=== PATIENT | female | born 1965 | race Caucasian/White ===

== ENCOUNTER 2022-06-26 08:23 | Emergency (ER) | payer BC, SELFPAY ==
[2022-06-26 08:45] VITALS: BP 115/76; PULSE 82; RESP 16; TEMP 35.8; O2SAT 97; BMI 31.2
--- NOTE | 2022-06-26 11:35 | PC.NURSE ---
pt to room 5
--- NOTE | 2022-06-26 11:36 | ED_ITS ---
HPI - Back Pain/Injury General Chief Complaint: Back Injury/Pain Stated Complaint: Back pain,lower right side Time Seen by Provider: 06/26/22 11:27 History of Present Illness HPI Narrative: This 56-year-old female comes in with low back pain on the right side. She has chronic back pain and has had 4 surgeries in the past. She does not report any recent injury event or strenuous activity but does state that her pain is worsened over the past 3 days. She has been taking Flexeril and gabapentin. She states that she has Crohn's disease and is not able to take NSAIDs. She does not report any pain radiating down her right leg. Pain is worse when bearing weight. Related Data Home Medications Medication Instructions Recorded Confirmed albuterol sulfate 90 mcg/actuation inhalation 06/26/22 aerosol inhaler (ProAir HFA) cyclobenzaprine 10 mg tablet mg 06/26/22 tramadol 50 mg tablet mg 06/26/22 Previous Rx's Medication Instructions Recorded hydrocodone 5 mg-acetaminophen 325 1 tab PO Q4-6H PRN pain #15 tabs 06/26/22 mg tablet methylprednisolone 4 mg tablets in 4 mg PO DAILY #21 ea 06/26/22 a dose pack (Medrol (Percy)) tizanidine 4 mg capsule (Zanaflex) 4 mg PO TID PRN muscle spasticity 06/26/22 #20 caps Allergies Allergy/AdvReac Type Severity Reaction Status Date / Time cefzil Allergy Mild unknown Uncoded 06/26/22 08:50 Review of Systems Status of ROS: Reports: 10 or more systems reviewed and unremarkable except as noted in History and below Narrative: Constitutional: No fevers, no weight gain or loss. Eyes: No discharge. No vision changes. HENT: No congestion, no sore throat, no ear pain. Cardiovascular: No chest pain, no palpitations. Respiratory: No shortness of breath, no wheezes, no cough. Gastrointestinal: No abdominal pain, no vomiting, no diarrhea. Genitourinary: No dysuria, no hematuria. Musculoskeletal: Normal range of motion. Right-sided low back pain as described above. Skin: No rashes, no pruritis. Neurological: No dizziness, weakness, sensory change, speech change. Endo/Heme/Allergies: No bruising or bleeding. No polydipsia. Pysch: no suicidality, no anxiety, no insomnia. All other systems reviewed and are negative. Exam Narrative: Exam Narrative: Constitutional: Well-developed, well-nourished, no acute distress. HEENT: Normocephalic, atraumatic. Neck: Normal range of motion. Nontender. Supple. Heart: Intact distal pulses. Lungs: No chest discomfort. No wheezes, rhonchi, or rales. Abdomen: Nontender. Back: Normal range of motion. Pain is worsened when palpating on the right low back region. Straight leg raise is negative. Extremities: Normal range of motion. No injury. She wears a brace on her left knee. Skin: Intact. No rash. Warm. No erythema or pallor. Neurologic: No altered sensation. No weakness. Alert and oriented. Psychiatric: No suicidality. No anxiety or depression. No insomnia. Nursing notes and vitals signs are reviewed. Const: Vital Signs, click to edit/add: Vital Signs - 24 hr 06/26/22 08:45 Temperature 96.5 F L Pulse Rate [Right Pulse Oximeter] 82 Respiratory Rate 16 Blood Pressure [Le ft Upper Arm] 115/76 Pulse Oximetry 97 Oxygen Delivery Me thod Room Air Course Vital Signs Vital signs: Initial Vital Signs Temperature 96.5 F L 06/26/22 08:45 Temperature Source Temporal Artery Scan 06/26/22 08:45 Pulse Rate 82 06/26/22 08:45 Pulse Rhythm 06/26/22 08:45 Respiratory Rate 16 06/26/22 08:45 Blood Pressure 115/76 06/26/22 08:45 Blood Pressure Mean 89 06/26/22 08:45 Blood Pressure Position Sitting 06/26/22 08:45 Pulse Oximetry 97 06/26/22 08:45 Oxygen Delivery Method 06/26/22 08:45 Vital Signs Temperature 96.5 F L 06/26/22 08:45 Pulse Rate 82 06/26/22 08:45 Respiratory Rate 16 06/26/22 08:45 Blood Pressure 115/76 06/26/22 08:45 Pulse Oximetry 97 06/26/22 08:45 Oxygen Delivery Method 06/26/22 08:45 Temperature 96.5 F L 06/26/22 08:45 Pulse Rate 82 06/26/22 08:45 Respiratory Rate 16 06/26/22 08:45 Blood Pressure 115/76 06/26/22 08:45 Pulse Oximetry 97 06/26/22 08:45 Oxygen Delivery Method 06/26/22 08:45 MDM - Back Pain/Injury MDM Narrative Medical decision making narrative: This patient has a flare-up of her chronic back pain. This is not related to any recent strenuous activity or injury event. Imaging studies are not indicated at this time. She received an intramuscular injection of morphine 10 mg. Prescriptions are provided for Roy, Zanaflex, and Medrol Dosepak. She understands that we will not repeat a refill these medicines the emergency department. Discharge Plan Discharge Clinical Impression: Lumbago Patient Disposition: Home, Self-Care Condition: Unchanged Instructions: Acute Low Back Pain (ED) Additional Instructions: Take medication as prescribed. Follow up with MD or return if worsening. Prescriptions: New methylprednisolone [Medrol (Percy)] 4 mg tablets,dose pack 4 mg PO DAILY Qty: 21 0RF tizanidine [Zanaflex] 4 mg capsule 4 mg PO TID PRN (Reason: muscle spasticity) Qty: 20 0RF hydrocodone-acetaminophen 5-325 mg tablet 1 tab PO Q4-6H PRN (Reason: pain) Qty: 15 0RF No Action cyclobenzaprine 10 mg tablet Label Comments: TAKE 1 TABLET BY MOUTH THREE TIMES DAILY NEEDED FOR MUSCLE SPASM tramadol 50 mg tablet Label Comments: TAKE 1 TABLET BY MOUTH THREE TIMES DAILY NEEDED albuterol sulfate [ProAir HFA] 90 mcg/actuation HFA aerosol inhaler INHALATION Label Comments: INHALE 2 PUFFS BY MOUTH FOUR TIMES DAILY NEEDED Stand Alone [facility]
[2022-06-26] MEDS: diphenhydrAMINE 25 MG CAPSULE PO (12:04)
[2022-06-26] MEDS: MORPHINE 10 MG/ML inj IM (12:04)
== END 2022-06-26 12:13 | disposition home or self-care (01) ==
LOC: ED 11:47
PROVIDERS: Emergency Provider Emergency Medicine Emergency Medical Services; PCP Physician Assistant Medical
DX: M54.50 Low back pain, unspecified (principal)
CPT/HCPCS: 96372; 99284; A9270; J2270

== ENCOUNTER 2022-07-28 09:04 | Outpatient (CLI) | payer BC, SELFPAY ==
[2022-07-28 14:38] LABS: SARS PCR* Negative SARS-CoV-2 (Negative)
== END 2022-07-28 09:05 | disposition home or self-care (01) ==
LOC: FBOREF 09:04
PROVIDERS: PCP Physician Assistant Medical; Visit Provider Orthopaedic Surgery
DX: Z11.52 Encounter for screening for COVID-19 (principal)
CPT/HCPCS: 87635

== ENCOUNTER 2022-07-29 06:13 | Day surgery (SDC) | payer BC, SELFPAY ==
[2022-07-29] VITALS (9 sets, daily range): BP systolic 96–127; BP diastolic 71–79; PULSE 16–80; RESP 14–16; TEMP 36.1–36.6; O2SAT 94–99; BMI 33.7
[2022-07-29] MEDS: LACTATED RINGERS 1000 ML 1,000 ML 100 ML IV (06:45)
[2022-07-29] MEDS: SODIUM CHLORIDE 0.9 % (FLUSH) 10 ML SYRINGE IVF (06:45)
[2022-07-29] MEDS: CLINDAMYCIN 900 MG/50 ML-D5W IVPB (07:40)
[2022-07-29] MEDS: BUPIVACAINE 0.25% 30 ML INJECTION (08:12)
--- NOTE | 2022-07-29 08:16 | PM.ORPRC ---
Procedure Note Date of procedure: 07/29/22 Procedure: SURGEON: Martín Man MD SYSTEMS SUPPORT OFFICER: Gabrielle Gann PA-C PREOPERATIVE DIAGNOSIS: Left knee medial meniscus tear, loose body, medial and patellofemoral compartment osteoarthritis POSTOPERATIVE DIAGNOSIS: Left knee medial meniscus tear, loose body, medial and patellofemoral compartment osteoarthritis NAME OF OPERATION: Left knee arthroscopic partial medial meniscectomy, loose body removal, medial and patellofemoral compartment chondroplasty ANESTHESIA: Spinal ESTIMATED BLOOD LOSS: 0 mL COMPLICATIONS: None SPECIMENS: None DRAINS: None PREOPERATIVE ANTIBIOTICS: Ancef 2 gram INDICATIONS: The patient is a 56-year-old female with a history of left knee medial pain. MRI scan is consistent with a medial meniscus tear, loose body, medial and patellofemoral compartment osteoarthritis. Despite appropriate nonoperative management, including activity modification, antiinflammatories, [id number] pain medication, bracing, physical therapy, and injections they continue to have pain and disability. Operative intervention was offered. The risks, benefits and expected outcomes were discussed in detail. These included but were not limited to: Infection, bleeding, injury to blood vessel or nerve, venous thromboembolism. All questions were answered to their satisfaction. PROCEDURE: Spinal anesthesia was administered. The patient was placed supine on the operating room table. The left lower extremity was prepped and draped in the usual sterile fashion. The limb was exsanguinated with the Cheko bandage. The pneumatic tourniquet was inflated to 300 mmHg. A standard anterolateral portal was established. The arthroscope was introduced. The working portal was established anteromedially. Diagnostic arthroscopy was performed with findings as follows: The suprapatellar pouch is normal. Articular surface on the patella shows grade 2/3 change since. Articular surface on the trochlea shows grade 2/3 change. The medial gutter is normal. The medial compartment shows diffuse grade 3 change on the medial femoral condyle, grade 2 change on the medial tibial plateau. The medial meniscus has a complex degenerative tear of the posterior horn, into the midbody. This primarily consists of a small radial tear with some undersurface horizontal cleavage tearing. The root is intact. The notch shows the ACL to be intact. There is a loose body, just lateral to the ACL. The lateral compartment shows normal articular cartilage on the lateral femoral condyle and lateral tibial plateau. The lateral meniscus is normal. The lateral gutter is normal. The posterior horn and midbody of the medial meniscus was debrided to a stable base using a combination of baskets and shaver through both portals. Unstable chondral flaps on the medial femoral condyle and femoral trochlea and patella were debrided with the shaver through both portals, taken to a stable base. The loose body was removed with a pituitary rongeur. Arthroscopic instruments were removed, the portal sites were Steri-Stripped closed, the knee was infiltrated with 30 mL of 0.25% Marcaine without epinephrine. A dry dressing was applied, the tourniquet was released. Sponge and needle counts were correct x 2. The patient tolerated the procedure well. There were no apparent complications. They were carefully transferred to the hospital bed and taken to the postanesthesia care unit in satisfactory condition. PLAN: The patient will be discharged to home. They may weightbear as tolerates. Range of motion will be unrestricted. They will follow up in the office next week for a wound check.
--- NOTE | 2022-07-29 08:25 | W.ANESCHARGE ---
Anesthesia Charges Start Date/Time Anesthesia Start Date: 07/29/22 Anesthesia Start Time: 07:29 Stop Date/Time Anesthesia Stop Date: 07/29/22 Anesthesia Stop Time: 08:23 Summary Emergency: No
--- NOTE | 2022-07-29 10:43 | W.ANESCHARGE ---
Anesthesia Charges Start Date/Time Anesthesia Start Date: 07/29/22 Anesthesia Start Time: 07:29 Stop Date/Time Anesthesia Stop Date: 07/29/22 Anesthesia Stop Time: 08:23 Summary Emergency: No
== END 2022-07-29 09:50 | disposition home or self-care (01) ==
PROVIDERS: PCP Physician Assistant Medical; Visit Provider Orthopaedic Surgery
PROC: (CPT 29870; principal; 2022-07-29 07:30)
DX: M23.222 Derangement of posterior horn of medial meniscus due to old tear or injury, left knee (principal); M23.42 Loose body in knee, left knee; M17.12 Unilateral primary osteoarthritis, left knee
CPT/HCPCS: 29881; 01400; J1100; J1200; J2250; J2400; J2405; J2704; J3010; J3490; J7120; S0077

== ENCOUNTER 2022-12-29 09:25 | Emergency (ER) | payer BC, SELFPAY ==
--- NOTE | 2022-12-29 | CRLHL7_ITS ---
For Patients: As a result of the Century Cures Act, medical imaging exams and procedure reports are released immediately into your electronic medical record. You may view this report before your referring provider. If you have questions, please contact your health care provider. Indication: Injury Technique: A total of three views each of the left hand and of the left breast were acquired. Comparison: None Findings: Bones: Alignment is normal. No fractures or bone lesions. Joint spaces: Moderate to severe osteoarthritis at the 1st carpometacarpal joint with remodeling deformity of the trapezium. Soft tissues: Unremarkable. Impression: 1. No acute fracture, dislocation or destructive process involving the left hand or the left wrist. 2. Moderate to severe osteoarthritis at the 1st carpometacarpal joint with remodeling deformity of the trapezium. Dictated by Dylan Bullock MD @ 12/29/2022 11:19:10 AM (Electronically Signed)
[2022-12-29 09:29] VITALS: BP 138/87; PULSE 62; RESP 18; TEMP 36.3; O2SAT 96
--- NOTE | 2022-12-29 10:19 | ED.UPPEXIN ---
HPI - Extremity Injury (Upper) General Chief Complaint: Extremity Pain/Injury, Upper Stated Complaint: Fell this morning, left arm injury Time Seen by Provider: 12/29/22 10:14 History of Present Illness HPI narrative: This 57-year-old female comes in because of an injury to her left upper extremity. She states that she slipped and fell onto her left side prior to arrival. She did not hit her head or have loss of consciousness she complains of pain in the left hand and wrist primarily. There is some discomfort also in her left elbow but she has normal range of motion and no sign of injury in the elbow region. She does have some swelling in her left hand and decreased range of motion due to pain. There is no obvious sign of deformity. Related Data Home Medications Medication Instructions Recorded Confirmed albuterol sulfate 90 mcg/actuation 2 inh inhalation PRN 06/26/22 12/29/22 aerosol inhaler (ProAir HFA) cyclobenzaprine 10 mg tablet mg 06/26/22 07/16/22 balsalazide 750 mg capsule 750 mg PO TID 07/28/22 12/29/22 gabapentin 600 mg tablet 600 mg PO QHS 07/28/22 12/29/22 acetaminophen 500 mg tablet 500 mg PO Q6H PRN 08/06/22 12/29/22 (Acetaminophen Extra Strength) epinephrine 0.3 mg/0.3 mL 12/29/22 injection, auto-injector Allergies Allergy/AdvReac Type Severity Reaction Status Date / Time cephalexin Allergy Hives Verified 12/29/22 09:33 latex Allergy Rash Verified 12/29/22 09:33 cefzil Allergy Mild unknown Uncoded 08/06/22 13:08 Shellfish Allergy Nausea Uncoded 08/06/22 13:08 Review of Systems Status of ROS: Reports: 10 or more systems reviewed and unremarkable except as noted in History and below Narrative: Constitutional: No fevers, no weight gain or loss. Eyes: No discharge. No vision changes. HENT: No congestion, no sore throat, no ear pain. Cardiovascular: No chest pain, no palpitations. Respiratory: No shortness of breath, no wheezes, no cough. Gastrointestinal: No abdominal pain, no vomiting, no diarrhea. Genitourinary: No dysuria, no hematuria. Musculoskeletal: Injury to left upper extremity as described above. Skin: No rashes, no pruritis. Neurological: No dizziness, weakness, sensory change, speech change. Endo/Heme/Allergies: No bruising or bleeding. No polydipsia. Pysch: no suicidality, no anxiety, no insomnia. All other systems reviewed and are negative. [facility] Medical History (Updated 12/29/22 @ 11:32 by Aaron Lara MD) Anxiety Chronic pain syndrome Crohn's disease Plantar fascia rupture Surgical History (Updated 08/06/22 @ 13:34 by Sabiha Piedra PA-C) H/O: hysterectomy Previous back surgery S/P arthroscopic partial medial meniscectomy S/P foot surgery, left Social History , [employer]) Smoking Status: Never smoker Do you use any of these nicotine containing products: None How often do you have a drink containing alcohol: monthly or less How many standard drinks containing alcohol do you have on a typical day: 1 or 2 How often do you have six or more drinks on one occasion: Never AUDIT-C Alcohol total score: 1 Non-prescribed substance use: denies use Caffeine: Yes (2 cups coffee in am) Are you using contraception or practicing any form of control: No service: No Exam Narrative: Exam Narrative: Constitutional: Well-developed, well-nourished, no acute distress. HEENT: Normocephalic, atraumatic. Neck: Normal range of motion. Nontender. Supple. Heart: Intact distal pulses. Lungs: No chest discomfort. No wheezes, rhonchi, or rales. Abdomen: Nontender. Back: Normal range of motion. Extremities: Diffuse tenderness in the left wrist and hand. Mild swelling. No skin injury. Decreased range of motion due to pain. Skin: Intact. No rash. Warm. No erythema or pallor. Neurologic: No altered sensation. No weakness. Alert and oriented. Psychiatric: No suicidality. No anxiety or depression. No insomnia. Nursing notes and vitals signs are reviewed. Const: Vital Signs, click to edit/add: Vital Signs - 24 hr 12/29/22 09:29 Temperature 97.4 F L Pulse Rate [Right Pulse Oximeter] 62 Respiratory Rate 18 Blood Pressure [Ri ght Upper Arm] 138/87 Pulse Oximetry 96 Oxygen Delivery Me thod Room Air Course Vital Signs Vital signs: Initial Vital Signs Temperature 97.4 F L 12/29/22 09:29 Temperature Source Temporal Artery Scan 12/29/22 09:29 Pulse Rate 62 12/29/22 09:29 Pulse Rhythm 12/29/22 09:29 Pulse Strength 3+ Normal 12/29/22 09:29 Respiratory Rate 18 12/29/22 09:29 Blood Pressure 138/87 12/29/22 09:29 Blood Pressure Mean 104 12/29/22 09:29 Blood Pressure Position Sitting 12/29/22 09:29 Pulse Oximetry 96 12/29/22 09:29 Oxygen Delivery Method 12/29/22 09:29 Vital Signs Temperature 97.4 F L 12/29/22 09:29 Pulse Rate 62 12/29/22 09:29 Respiratory Rate 18 12/29/22 09:29 Blood Pressure 138/87 12/29/22 09:29 Pulse Oximetry 96 12/29/22 09:29 Oxygen Delivery Method 12/29/22 09:29 Temperature 97.4 F L 12/29/22 09:29 Pulse Rate 62 12/29/22 09:29 Respiratory Rate 18 12/29/22 09:29 Blood Pressure 138/87 12/29/22 09:29 Pulse Oximetry 96 12/29/22 09:29 Oxygen Delivery Method 12/29/22 09:29 MDM - Extremity Injury (Upper) MDM Narrative Medical decision making narrative: This patient comes in for evaluation of injury to her left upper extremity because of a fall that occurred just prior to arrival. X-ray imaging of the hand and wrist show no acute findings of fracture or dislocation. There are some degenerative changes observed on x-ray imaging. The patient received a splint and is encouraged use [id number] medicines as needed and directed along with increased activity as tolerated. Imaging Data XR L Hand/Wrist: Radiologist's impression: 1. No acute fracture, dislocation or destructive process involving the left hand or the left wrist. 2. Moderate to severe osteoarthritis at the 1st carpometacarpal joint with remodeling deformity of the trapezium. Discharge Plan Discharge Clinical Impression: Sprain and strain of wrist Patient Disposition: Home, Self-Care Condition: Stable Additional Instructions: Wear splint as needed. Increase activity as tolerated. Use [id number] medicines as needed and directed. Follow up with MD or return if worsening. Prescriptions: No Action acetaminophen [Acetaminophen Extra Strength] 500 mg tablet 500 mg PO Q6H PRN cyclobenzaprine 10 mg tablet Hold Instructions: per patient Label Comments: TAKE 1 TABLET BY MOUTH THREE TIMES DAILY NEEDED FOR MUSCLE SPASM albuterol sulfate [ProAir HFA] 90 mcg/actuation HFA aerosol inhaler 2 inh INHALATION PRN Label Comments: INHALE 2 PUFFS BY MOUTH FOUR TIMES DAILY NEEDED balsalazide 750 mg capsule 750 mg PO TID Hold Instructions: pt gabapentin 600 mg tablet 600 mg PO QHS epinephrine 0.3 mg/0.3 mL auto-injector Label Comments: USE DIRECTED FOR BEE STING Follow Up/Referrals: Rafia Hickman, PARosita [Primary Care Provider] - Stand Alone [facility]
== END 2022-12-29 11:37 | disposition home or self-care (01) ==
PROVIDERS: Emergency Provider Emergency Medicine Emergency Medical Services; PCP Physician Assistant Medical
DX: S63.502A Unspecified sprain of left wrist, initial encounter (principal); W01.0XXA Fall on same level from slipping, tripping and stumbling without subsequent striking against object, initial encounter
CPT/HCPCS: 73110; 73130; 99283; 99284

== ENCOUNTER 2023-08-07 09:02 | Outpatient (CLI) | payer BC, SELFPAY ==
--- OUTSIDE RECORDS SUMMARY | 2023-08-07 09:04 | XMS_ITS | Continuity of Care Document ---
Author Name Unknown Organization [facility] Address [address] [place] [address] Phone Care Team Providers Care Grinding Wheel Inspector Name Role Phone Gurvinder NEELY, Anna Unavailable Unavailable Allergies, Adverse Reactions, Alerts Substance Reaction Status Criticality Cephalosporins rash Active No Informatio n Medications Medication Instructions Dosage Effective Dates (start - stop) Status Comments VICODIN HP (unknown strength) Not Available - Active GABAPENTIN (unknown strength) Not Available - Active BENADRYL (unknown strength) Not Available - Active CYCLOBENZAPRINE HCL (unknown strength) Not Available - Active TRAMADOL HCL ER (unknown strength) Not Available - Active Procedures Procedure Date Postop Followup Visit X-Ray Exam Of Neck Spine2-3 Views Postop Followup Visit X-Ray Exam Lower Spine 2-3 Views 2019 TLIF - Includes PSF at the same level - PA Posterior Instrumentation, Non-segmental - PA PEEK/ Cage/ Implant, For Interbody Fusio n - PA TLIF - Includes PSF at the same level No Posterior Instrumentation, Non-segmental PEEK/ Cage/ Implant, For Interbody Fusio n Office/Outpatient Visit,Est, Mod 2019 X-Ray Exam Of Lower Spine, Bending Postop Followup Visit Postop Followup Visit Lami/Discectomy, Lumbar HNP - PA 2019 Lami/Discectomy, Lumbar HNP OFFICE/OUTPATIENT VISIT NEW Phone Postop followup visit Remove spine fixation device, post PA Assist Remove spine fixation device, post Office/outpatient visit,est, low 2008 X-ray exam lower spine 2-3 views 2008 Office/outpatient visit,est, mod 2007 X-ray exam lower spine 2-3 views 2007 Postop followup visit X-ray exam lower spine 2-3 views 2006 Postop followup visit X-ray exam lower spine 2-3 views 2006 [place] Lumbar spine fusion w/bone graft Lumbar spine fusion, posterolateral Insert spine fixation, posterior 2006 Apply spinal prosthetic device 07 Allograft, spine surg, morselized Low back disk surgery/decompress 2006 Assist ILumbar spine fusion, posterolate ral Assist Insert spine fixation, posterior Assist Apply spinal prosthetic device Ju Assist Low back disk surgery/decompress Office consultation, moderate 7 X-ray exam lwr spine, min 4 views Advance Directives Directive Yes / No Effective Date File Name No Information Encounters Encounter Description Practice Location Reason(s) For Visit Diagnoses Date Provider Providers Copied on Encounter [facility], [address], [place], [place], [id number], [place] tel:[phone] [facility] No Information 1 Gurvinder Pugh [facility], [address], [place], [place], [id number] , [place]. tel:[phone] [facility], [address], [place], [place], [id number], [place] tel:[phone] [facility] Other intervertebral disc displacement, lumbar regionSpinal stenosis, lumbar region with neurogenic claudication Fe0 1 Bruce Bowens. [address], [place], [place], [id number] , [place]. tel: [phone] Referring Provider: Anna Hollins [facility] [address], [place], [address] . tel:[phone] [facility], [address], [place], [place], [address], [place] tel:[phone] [facility] Spinal stenosis, lumbar region with neurogenic claudicationOt her intervertebral disc displacement, lumbar region 0 Mehbod [facility], [address], [place], [place], [id number] , [place]. tel: [phone] Referring Provider: Anna Hollins, [facility] [place] [address], [place], [address] . tel:[phone] [facility], [address], [place], [place], [id number], [place] tel:[phone] [facility] No Information 0 Eckroth Kwan. [address] [place] [address] [address], [place], [place], [id number] , [place]. tel: [phone] Referring Provider: Anna Hollins [facility] [place] [address], [place], [address] . tel:[phone] [facility], [address], [place], [place], [id number], [place] tel:[phone] [facility] No Information 0 Mehbradha Pugh [facility], [address], [place], [place], [id number] , [place]. tel: [phone] Referring Provider: Anna Hollins [facility] [place] [address], [place], [address] . tel:[phone] Office/Outpa tient Visit,Est, Mod [facility], [address], [place], [place], [id number], [place] tel:[phone] [facility] Spinal stenosis, lumbar region with neurogenic claudicationOt her intervertebral disc displacement, lumbar region 2-202 0 Mehbod [facility], [address] [place] [address] [address], [place], [place], [id number] , . tel:[phone] Referring Provider: Claude Martinez, [address], [address]. tel:[phone] [facility], [address] [place] [address], [id number], [place] tel:[phone] [facility] [place] Radiculopathy, lumbar region 0-202 0 Eckroth Kwan. [address] [place] [address], [id number] , [place]. tel:[phone] Referring Provider: Anna Hollins, [facility] [place] [address], [place], [address] . tel:[phone] [facility], [address], [place], [place], [id number], [place] tel:[phone] [facility] - [facility] Arthrodesis status 0 Mehbod [facility] [place], [address] [place] [address], [place], [place], [id number] , [place]. tel:[phone] Referring Provider: Ravi German, [address] [place], [address]. tel:[phone] [facility], [address], [place], [place], [id number], [place] [phone] [facility] No Information 0 6-202 0 Eckroth Kwan. [address] [place] [address], [id number] , . tel:[phone] Referring Provider: Anna Hollins, [facility] [place] [address], [place], [address] . tel:[phone] [facility], [address] [place] [address], [id number], [place] tel:[phone] [facility] No Information May-0 4-202 0 Mehbod Amir. [facility], [address], [place], [place], [id number] , [place]. tel: [phone] Referring Provider: Anna Hollins, [facility] [address], [place], [address] . tel:[phone] OFFICE/OUTPA TIENT VISIT NEW Phone [facility], [address], [place], [place], [id number], [place] tel:[phone] [facility] No Information Feb-2 9-202 0 Mehbod Amir. [facility] [place], [address], [place], [place], [address] , [place]. tel: [phone] Referring Provider: Anna Hollins, [facility] [place] [address], [place], [address] . tel:[phone] Z [facility], [address], [place], [facility], [place] tel:[phone] [facility] No Information May-2 0-200 9 Mehbod Amir. [facility], [address], [place], [place], [id number] , [place]. tel:[phone] Z [facility], [address], [place], [facility], [place] tel:[phone] [facility] No Information Satish-0 9-200 9 Mehbod Amir. [facility], [address], [place], [place], [address] , [place]. tel:[phone] Office/outpa tient visit,est, low Z [facility], [address], [place], [address], [place] tel:[phone] [facility] No Information Apr-3 0-200 9 Mehbod Amir. [facility] [place], [address], [place], [place], [id number] , [place]. tel: [phone] Office/outpa tient visit,est, mod Z [facility], [address] [facility] [address], [place], [address], [place] tel: [phone] [facility] No Information Jan- 7-200 8 Mehbod Amir. [facility] [place], [address], [place], [place], [id number] , [place]. tel: [phone] Z [facility], [address], [place], [address], [place] tel: [phone] [facility] No Information Oct-0 1-200 7 Mehbod Amir. [facility] [place], [address], [place], [place], [id number] , [place]. tel: [phone] Z [facility], [address] [place], [place] [address], [place], [facility], [place] tel: [phone] [facility] No Information Jun-2 0-200 7 Mehbod Amir. [facility], [address], [place], [place], [id number] , [place]. tel: [phone] Z [facility], [address] [facility] [address], [place], [address], [place] tel: [phone] [facility] No Information 1-200 7 Mehbod Amir. [facility], [address], [place], [place], [id number] , [place]. tel: [phone] Office consultation , moderate Z [facility], [address] [facility] [address], [place], [address], [place] tel:[phone] [facility] No Information March-2 1-200 7 Mehbod Amir. [facility] [place], [address], [place], [place], [id number] , [place]. tel: [phone] Family History Family Member Type Diagnosis Age At Onset No Information Payers Payer name Insurance type Covered democrat ID Authoriza tion(s) No Information Social History Type Description Quantity Date Captured Comments Sex Female Smoking Status No Information Chief Complaint And Reason For Visit No Information Reason For Referral Reason For Referral No Information Plan Of Treatment Date Type Action Status Future Order: Radiology Order F/ E Lumbar (F/ELumb), Ordered on: Ordered History Of Present Illness Encounter Date Complaint History Of Prese nt Illness No Information Functional Status Date Functional Assessmen t No Information Instructions Date Instruction Additional Infor mation No Information Assessments Type Assessment Date No Information Patient Care Teams Name Effective Dates (start - stop) Status Members No Information
== END 2023-08-07 09:03 | disposition home or self-care (01) ==
PROVIDERS: PCP Physician Assistant Medical; Visit Provider Family Medicine
DX: M54.16 Radiculopathy, lumbar region (principal); M79.18 Myalgia, other site
CPT/HCPCS: 64483; J0702; J1100; Q9966

== ENCOUNTER 2024-03-16 12:51 | Emergency (ER) | payer BC, SELFPAY ==
[2024-03-16 12:57] VITALS: BP 121/81; PULSE 78; RESP 16; TEMP 37.2; O2SAT 93
--- NOTE | 2024-03-16 13:23 | ED_ITS ---
HPI - Back Pain/Injury General Chief Complaint: Back Injury/Pain Stated Complaint: back pain Time Seen by Provider: 03/16/24 13:06 History of Present Illness HPI Narrative: This 58-year-old female comes in by ambulance because of flare up of severe low back pain. She has had surgeries to her low back and has chronic low back pain. She is seeing Dr. Santiago in the spine clinic and did go to her primary physician about a week ago for refill of tramadol and Flexeril. The patient does have Crohn's disease and does not use NSAIDs. She states that she stepped wrong yesterday and john her back and now has severe pain. She did receive 2 doses of fentanyl 50 mg intravenously and route here and now feels much better. She does not describe any specific mechanism of injury that would indicate need for imaging at this time. Related Data Home Medications Medication Instructions Recorded Confirmed albuterol sulfate 90 mcg/actuation 2 inh inhalation PRN 06/26/22 12/29/22 aerosol inhaler (ProAir HFA) cyclobenzaprine 10 mg tablet mg 06/26/22 07/16/22 balsalazide 750 mg capsule 750 mg PO TID 07/28/22 12/29/22 gabapentin 600 mg tablet 600 mg PO QHS 07/28/22 12/29/22 acetaminophen 500 mg tablet 500 mg PO Q6H PRN 08/06/22 12/29/22 (Acetaminophen Extra Strength) epinephrine 0.3 mg/0.3 mL 12/29/22 injection, auto-injector Previous Rx's Medication Instructions Recorded hydrocodone 5 mg-acetaminophen 325 1 tab PO Q4-6H PRN pain #15 tabs 03/16/24 mg tablet methylprednisolone 4 mg tablets in See Rx Instructions PO .COMPLEX 03/16/24 a dose pack (Medrol (Percy)) #21 ea Allergies Allergy/AdvReac Type Severity Reaction Status Date / Time bee venom protein (honey bee) Allergy Unknown Verified 03/16/24 13:00 cephalexin Allergy Hives Verified 12/29/22 09:33 latex Allergy Rash Verified 12/29/22 09:33 cefzil Allergy Mild unknown Uncoded 08/06/22 13:08 Shellfish Allergy Nausea Uncoded 08/06/22 13:08 Review of Systems Status of ROS: Reports: 10 or more systems reviewed and unremarkable except as noted in History and below Narrative: Constitutional: No fevers, no weight gain or loss. Eyes: No discharge. No vision changes. HENT: No congestion, no sore throat, no ear pain. Cardiovascular: No chest pain, no palpitations. Respiratory: No shortness of breath, no wheezes, no cough. Gastrointestinal: No abdominal pain, no vomiting, no diarrhea. Genitourinary: No dysuria, no hematuria. Musculoskeletal: Chronic low back pain with acute flare up. Skin: No rashes, no pruritis. Neurological: No dizziness, weakness, sensory change, speech change. Endo/Heme/Allergies: No bruising or bleeding. No polydipsia. Pysch: no suicidality, no anxiety, no insomnia. All other systems reviewed and are negative. [facility] Medical History (Updated 03/16/24 @ 13:26 by Aaron Lara MD) Chronic pain syndrome ?G89.4 - Chronic pain syndrome (ICD-10) Anxiety ?F41.9 - Anxiety disorder, unspecified (ICD-10) Crohn's disease ?K50.90 - Crohn's disease, unspecified, without complications (ICD-10) Plantar fascia rupture ?S93.699A - Other sprain of unspecified foot, initial encounter (ICD-10) Surgical History (Updated 08/06/22 @ 13:34 by Sabiha Piedra PA-C) S/P arthroscopic partial medial meniscectomy ?Z98.890 - Other specified postprocedural states (ICD-10) S/P foot surgery, left ?Z98.890 - Other specified postprocedural states (ICD-10) H/O: hysterectomy ?Z90.710 - Acquired absence of both cervix and uterus (ICD-10) Previous back surgery ?Z98.890 - Other specified postprocedural states (ICD-10) Social History Smoking Status: Never smoker Do you use any of these nicotine containing products: None How often do you have a drink containing alcohol: monthly or less How many standard drinks containing alcohol do you have on a typical day: 1 or 2 How often do you have six or more drinks on one occasion: Never AUDIT-C Alcohol total score: 1 Non-prescribed substance use: denies use Caffeine: Yes (2 cups coffee in am) Are you using contraception or practicing any form of control: No service: No Exam Narrative: Exam Narrative: Constitutional: Well-developed, well-nourished, no acute distress. HEENT: Normocephalic, atraumatic. Neck: Normal range of motion. Nontender. Supple. Heart: Intact distal pulses. Lungs: No chest discomfort. No wheezes, rhonchi, or rales. Abdomen: Nontender. Back: Chronic low back pain. Current pain is more localized in the upper buttock on the right of midline. She has chronic pain radiating down her right leg due to intervertebral disc disease. Extremities: Normal range of motion. No injury. Skin: Intact. No rash. Warm. No erythema or pallor. Neurologic: No altered sensation. No weakness. Alert and oriented. Psychiatric: No suicidality. No anxiety or depression. No insomnia. Nursing notes and vitals signs are reviewed. Const: Vital Signs, click to edit/add: Vital Signs - 24 hr 03/16/24 12:57 Temperature 98.9 F Pulse Rate [Pulse Oximeter] 78 Respiratory Rate 16 Blood Pressure [Le ft Upper Arm] 121/81 Pulse Oximetry 93 Oxygen Delivery Me thod Room Air Course Vital Signs Vital signs: Initial Vital Signs Temperature 98.9 F 03/16/24 12:57 Temperature Source Temporal Artery Scan 03/16/24 12:57 Pulse Rate 78 03/16/24 12:57 Respiratory Rate 16 03/16/24 12:57 Blood Pressure 121/81 03/16/24 12:57 Blood Pressure Mean 94 03/16/24 12:57 Blood Pressure Position Supine 03/16/24 12:57 Pulse Oximetry 93 03/16/24 12:57 Oxygen Delivery Method Room Air 03/16/24 12:57 Vital Signs Temperature 98.9 F 03/16/24 12:57 Pulse Rate 78 03/16/24 12:57 Respiratory Rate 16 03/16/24 12:57 Blood Pressure 121/81 03/16/24 12:57 Pulse Oximetry 93 03/16/24 12:57 Oxygen Delivery Method Room Air 03/16/24 12:57 Temperature 98.9 F 03/16/24 12:57 Pulse Rate 78 03/16/24 12:57 Respiratory Rate 16 03/16/24 12:57 Blood Pressure 121/81 03/16/24 12:57 Pulse Oximetry 93 03/16/24 12:57 Oxygen Delivery Method Room Air 03/16/24 12:57 MDM - Back Pain/Injury MDM Narrative Medical decision making narrative: This patient comes in by ambulance because of severe back pain. She has history of chronic back pain and reports a recent flare up. She has been taking tramadol and Flexeril as prescribed. She takes Flexeril every night to help her sleep and does not use narcotics or pain medicine frequently. She was seen by me about a year ago with a flare up but otherwise has no other visits to emergency department in our system. She is following up appropriately with her primary physician and with the spine clinic. She is feeling much better currently after receiving IV doses of fentanyl from ambulance personnel on the way here. She did receive an IV dose of Solu-Medrol 125 mg here. I did provide prescription for Medrol Dosepak and a few tablets of Souris for additional pain relief. Discharge Plan Discharge Clinical Impression: Lumbar radiculopathy Patient Disposition: Home w/ Parent or Adult Condition: Stable Additional Instructions: Take medication as prescribed. Increase activity as tolerated. Follow up with MD or spine clinic. Return if worsening. Prescriptions: New hydrocodone-acetaminophen 5-325 mg tablet 1 tab PO Q4-6H PRN (Reason: pain) Qty: 15 0RF methylprednisolone [Medrol (Percy)] 4 mg tablets,dose pack See Rx Instructions .ROUTE .COMPLEX Qty: 21 0RF Rx Instructions: orally per package directions No Action acetaminophen [Acetaminophen Extra Strength] 500 mg tablet 500 mg PO Q6H PRN cyclobenzaprine 10 mg tablet Hold Instructions: per patient Patient Comments: TAKE 1 TABLET BY MOUTH THREE TIMES DAILY NEEDED FOR MUSCLE SPASM albuterol sulfate [ProAir HFA] 90 mcg/actuation HFA aerosol inhaler 2 inh INHALATION PRN Patient Comments: INHALE 2 PUFFS BY MOUTH FOUR TIMES DAILY NEEDED balsalazide 750 mg capsule 750 mg PO TID Hold Instructions: pt gabapentin 600 mg tablet 600 mg PO QHS epinephrine 0.3 mg/0.3 mL auto-injector Patient Comments: USE DIRECTED FOR BEE STING Follow Up/Referrals: Rafia Hickman PA-C [Primary Care Provider] - Stand Alone Forms: [facility] Info Instructions
[2024-03-16] MEDS: METHYLPREDNISOLONE SOD SUCC 62.5 MG/ML (125) 125 MG IVP (13:33)
--- OUTSIDE RECORDS SUMMARY | 2024-03-16 13:33 | XMS_ITS | Clinical Summary ---
Author Name Unknown Organization [employer] [facility] Address [place], [place] [address] Care Team Providers Care Economics Instructor Name Role Phone Rafia Hickman Primary Care Provider Allergies Active Allergy Reactions Criticality Noted Date Comments Venom-Honey Bee Edema 04/02/2018 Hymenoptera Allergenic Extract Anaphylaxis 05/26/2007 Bees Cephalexin Hives,Rash 05/18/2007 Lactose Other - Describe In Comment Field 11/30/2013 Per patient Latex Rash,Intolerance-Can 't Take 04/23/2009 Rash from latex gloves Shellfish Containing Products Nausea And Vomiting 01/27/2008 Medications Medication Sig Dispensed Refills Start Date End Date Status diphenhydrAMINE (BENADRYL) 25 mg tablet Take 25-50 mg by mouth every 4 hours if needed. Active multivitamin (MVI) tablet Take 1 tablet by mouth once daily. Active acetaminophen (TYLENOL EXTRA STRGTH) 500 mg tabletIndications:A cute post-operative pain Take 2 tablets by mouth every 6 hours. Max acetaminophen dose: 4000mg in 24 hrs. 30 tablet 0 Active balsalazide (COLAZAL) 750 mg capsuleIndications: Crohn's disease of small intestine without complication (HC),Generalized abdominal pain,Diarrhea, unspecified type Take 3 Capsules (2,250 mg) by mouth 3 times daily. 280 Capsule 11 2 Active EPINEPHrine (EPIPEN) 0.3 mg/0.3 mL auto-injectorIndica tions:Bee sting allergy For bee sting. 2 Each 2 3 Active albuterol HFA (PRO-AIR; VENTOLIN; PROVENTIL) 90 mcg/actuation inhalerIndications: Asthma, intermittent, uncomplicated INHALE 2 PUFFS BY MOUTH FOUR TIMES DAILY NEEDED FOR SHORTNESS OF BREATH 18 g 3 Active gabapentin (NEURONTIN) 600 mg tabletIndications:D isplacement of lumbar intervertebral disc without myelopathy TAKE 1 TABLET(600 MG) BY MOUTH THREE TIMES DAILY 270 Tablet 4 Active pregabalin (LYRICA) 75 mg capsuleIndications: Lumbar radiculopathy Take 1 Capsule (75 mg) by mouth two times daily. 60 Capsule 2 4 Active traMADoL (ULTRAM) 50 mg tabletIndications:L umbar radiculopathy Take 1 Tablet (50 mg) by mouth 3 times daily if needed for Pain. 36 Tablet 1 4 Active cyclobenzaprine (FLEXERIL) 10 mg tabletIndications:D isplacement of lumbar intervertebral disc without myelopathy Take 1 Tablet (10 mg) by mouth 3 times daily if needed for Muscle Spasm. 90 Tablet 1 4 Active ProAir HFA 90 mcg/actuation inhalerIndications: Asthma, intermittent, uncomplicated INHALE 2 PUFFS BY MOUTH FOUR TIMES DAILY NEEDED 8.5 g 1 03/07/20 24 Discontinu ed(*Patien t states no longer taking) durable medical equipment (DME)Indications:Pa tellar instability of left knee,Post-traumatic osteoarthritis of left knee Procare Reddie hinged knee brace, XL [id number] Length of use: 99 months 0 2 03/07/20 24 Discontinu ed(*Patien t states no longer taking) polyethylene glycol-electrolyte (GOLYTELY) 236-22.74-6.74 -5.86 gram suspensionIndicatio ns:Encounter for screening colonoscopy Drink 2 liters the day before the procedure and 2 liters 6 hours prior to procedure. 4000 mL 3 03/07/20 24 Discontinu ed(*Patien t states no longer taking) celecoxib (CELEBREX) 200 mg capsuleIndications: Lumbar facet arthropathy TAKE 1 CAPSULE(200 MG) BY MOUTH TWICE DAILY WITH MEALS 180 Capsule 1 3 03/07/20 24 Discontinu ed(*Patien t states no longer taking) traMADoL (ULTRAM) 50 mg tabletIndications:L umbar radiculopathy Take 1 Tablet (50 mg) by mouth 3 times daily if needed for Pain. 36 Tablet 1 4 03/07/20 24 Discontinu ed(Reorder (E-cancel not sent)) cyclobenzaprine (FLEXERIL) 10 mg tabletIndications:D isplacement of lumbar intervertebral disc without myelopathy Take 1 Tablet (10 mg) by mouth 3 times daily if needed for Muscle Spasm. 90 Tablet 1 4 03/07/20 24 Discontinu ed(Reorder (E-cancel not sent)) Active Problems Problem Noted Date Diagnosed Date Depression, major, single episode, severe 2021 Shoulder pain, left 12/29/2017 Overview: Had a pop in the shoulder Was reaching under and holding something heavy at work Then rotated and then was ok Now aching in both collar bone History of left shoulder blowing out - hot burning in the left hand Was holding and then rotated so got it back Pain medication agreement 02/19/2015 Overview: Prescriber: MIR García, Secondary Dr. Claude Martinez Ok to fill at same amount/dose/frequency in my absence. Controlled substance agreement: 12/18/14 [employer] query: 07/23/22 Last UDS: 12/14/20 Bilateral [facility] arthralgia 11/30/2013 T7-8 disk protrusion 04/18/2013 Chronic pain syndrome 10/20/2008 Displacement of lumbar inter vertebral disc without myelopathy 10/11/2008 Back pain 08/25/2008 Unspecified asthma(493.90) 05/03/2007 Anxiety state, unspecified 05/03/2007 Crohn's disease of small intestine without compl ication 05/03/2007 Overview: Colonoscopy 02/2018 mild crohn's ileitis, repeat in 5 years Colonoscopy 06/2023 mild inflammation due to NSAIDs, no active Crohn's, repeat in 10 years Postoperative back pain Resolved Problems Problem Noted Date Diagnosed Date Resolved Date S/P lumbar L5-S1 fusion in 200610/12/2013 07/23/2022 Umbilical hernia without men tion of obstruction or gangrene 11/18/2012 07/23/2022 Gastrojejunal ulcer, unspeci fied as acute or chronic, without mention of hemorrhage, perforation, or obstruction 05/03/2007 07/23/2022 Acute postoperative pain 05/2022 Chronic, continuous use of opioids 07/23/2022 Encounters Date Type Department Care Team Description 03/16/2024 Nurse Triage [facility] [address] [place] [address] Rafia Hickman PA Back Pain/problem 03/07/2024 3:20 PM CDT Office Visit [facility] [address] [place] [address] Rafia Hickman PA Concerns (Ovarian cyst found on MRI - ) 03/07/2024 Travel 02/17/2024 3:04 PM CDT - 02/17/2024 11:59 PM CDT Hospital Encounter [facility] [address] [place] [address] Benedict Hartley MD Chronic left hip pain; Subchondral cyst 02/17/2024 Travel 12/28/2023 Medical Messaging [facility] [address] [place] [address] Claude Martinez MD physical therapy 12/21/2023 Refill [facility] [address] [place] [address] Claude Martinez MD Refill Request (Gabapentin) from Last 3 Months Immunizations Name Administration Dates Next Due COVID-19 Vaccine Spikevax (M oderna 50mcg/0.5mL) 12YO+ [id number] Formula PF 09/25/2023 COVID-19 vaccine (Moderna 100mcg/0.5mL) ALESSANDRA العلي 04/17/2021,02/13/2021 COVID-19 vaccine (Pfizer-Bio NTech 30mcg/0.3mL) ALESSANDRA العلي 11/25/2021 Influenza, IIV3 (Age >=3 years) 09/01/2012,09/20,10/19/2007 Influenza, IIV4 09/25/2023, 2,11/06/2020,2017,12/29/2017,09/01/2016,01/08/2015 Measles 02/28/1976 Td, Preservative Free (age > = 7 Years) 08/25/2018 Tdap 05/03/2007 Family History Medical History Relation Name Comments Arthritis Father Hypertension Father Stroke Father Other Maternal Aunt 1 disc disease Other Maternal Aunt 2 spinal djd Other Maternal Aunt 3 spinal djd Alzheimer's disease Mother Arthritis Mother Heart Disease Paternal Grandfather Asthma Paternal Grandmother d of asthma causes Cancer-breast No Family History Relation Name Status Comments Brother 1 Alive Brother 2 Alive Father Alive Maternal Aunt 1 Maternal Aunt 2 Maternal Aunt 3 Mother Alive Paternal Grandfather Paternal Grandmother Sister Alive Social History Tobacco Use Types Packs/Day Years Used Date Smoking Tobacco: Never Smokeless Tobacco: Never Tobacco Cessation:Counseling Given: Yes Alcohol Use Standard Drinks/Week Comments Yes 0 (1 standard drink = 0.6 oz pur e alcohol) rare PHQ-2 Answer Date Recorded PHQ-2 TOTAL SCORE 3 07/03/2020 Social Connections Answer Date Recorded Frequency of Communication with Friends and Fami ly 0 05/26/2023 Financial Resource Strain Answer Date R ecorded Difficulty of Paying Living Expenses 3 05/26/2023 Difficulty of Paying Living Expenses Not on file 05/26/2023 Food Insecurity Answer Date Recorded Worried About Running Out of Food in the Last Ye ar 1 05/26/2023 Transportation Needs Answer Date Record ed Lack of Transportation (Medical) 1 05/26/2023 Housing Stability Answer Date Recorded Unable to Pay for Housing in the Last Year 1 05/26/2023 Sex and Gender Information Value Date Recorded Sex Assigned at Not on file Gender Identity Not on file Sexual Orientation Not on file Obstetrics History Para Term AB IAB SAB Ectopic Multiple Livin g Live Births 8 3 3 5 Date Outcome GA Total Labor Labor/2nd/3rd Weight Sex Delivery Anes PTL Bessie A1 A5 Name Cl in SAB SAB SAB Comments early miscarriages. One chil d of SIDS Last Filed Vital Signs Vital Sign Reading Time Taken Comments Blood Pressure 124/74 03/07/2024 3:22 PM CDT Pulse 98 03/07/2024 3:22 PM CDT Temperature 36.5 ??C (97.7 ??F) 12/04/2023 11:[address] Respiratory Rate 14 07/02/2023 8:58 AM CDT Oxygen Saturation 99% 12/04/2023 11:03 AM CRANKSHAFT BALANCER Inhaled Oxygen Concentration - - Weight 87.5 kg (193 lb) 03/07/2024 3:22 PM CDT Height 166.4 cm (5' 5.5) 02/23/2023 11:12 AM CD T Body Mass Index 31.63 02/23/2023 11:12 AM CDT Plan of Treatment Upcoming Encounters Date Type Department Care Team (Late st Contact Info) Description 03/23/2024 4:00 PM CDT Ancillary Procedure [facility] [address] [place] [address] 04/01/2024 11:00 AM CDT Office Visit [facility] [address] [place] [address] Claude Martinez MD [address] [place] [address] Health Maintenance Due Date Last Done Comments HIV for age 15-65 1982 Hepatitis C screening for age 18-79 1985 Zoster (shingles) series for age 50+ (1 of 2) 2017 Depression screening for age 12+ 07/04/2021 07/04/2020, 07/03/2020, 12/26/2019, Additional history exists Mammogram for age 45-75 2023 12/12/19, 07/18/2020, 01/20/2018, Additional history exists BMI (ht and wt on same day) for age 18+ 02/24/2024 02/23/2023, 10/06/2022, 07/23/2022, Additional history exists Influenza for age 50-64 07/17/2024 09/25/20, 10/06/2022, 11/06/2020, Additional history exists Lipids for age 45-75 07/23/2027 07/23/2022, 01/15/2018, 03/16/2013 Colonoscopy through age 75 07/02/202807/02, 07/02/2023, 02/26/2018, Additional history exists Tetanus booster 08/25/2028 08/25/2018, 05/03/2007 Tdap Completed 05/03/2007 COVID-19 vaccine series Completed 09/25/20, 11/25/2021, 04/17/2021, Additional history exists Pneumococcal series for age 6-64 Aged Out No longer eligible based on patient's age to complete this topic Medical Devices Implanted Type Area Shine Worker Device Identifier Shelf Expiration Date Model / Serial / Lot [id number] ne Canclls Crushed 30cc [[id number]] Implanted:Qty: 1 on 05/21/2007 at [facility] Explanted:at [facility] (Quantity not on file) Spine Allosource 02/22/2012 [id number]# / [id number] / [id number] Precision 16x26 Fz [[id number]] Implanted:Qty: 1 on 05/21/2007 at [facility] Explanted:at [facility] (Quantity not on file) Spine [employer] 02/23/2012 [id number]# / [id number] / [id number] ne Canclls Crushed 30cc [[id number]] Implanted:Qty: 1 on 05/21/2007 at [facility] Explanted:at [facility] (Quantity not on file) Spine Allosource 02/25/2012 [id number]# / [id number] / Dale Bridgette Rad 40mm 108mm Radius - [id number] Implanted:Qty: 2 on 05/21/2007 at [facility] Spine HOWMEDICA [id number]# / / Venu Bridgette [id number] - [id number] Implanted:Qty: 4 on 05/21/2007 at [facility] Spine [employer]MEDICA [id number]# / / Kit Infuse Sm - [id number] Implanted:Qty: 1 on 05/21/2007 at [facility] Spine SOFYOKO DANEK [id number]# / / [id number] Screw Polyaxial 6.5x35mm - [id number] Implanted:Qty: 2 on 05/21/2007 at [facility] Spine [employer]MEDICA [id number]# / / Screw Polyaxial 6.5x45mm - [id number] Implanted:Qty: 2 on 05/21/2007 at [facility] Spine [employer]MEDICA [id number]# / / [id number] ne Matrix 3cc Pepito Dbf Putty Dbm Implanted:Qty: 1 on 09/19/2020 by Anna Hollins MD at [facility] Explanted:at [facility] (Quantity not on file) Spine Medtronic Spine/Ortho 06/27/2022 [id number]# / [id number] / Spacer Lmbr [id number] Zyston Convex Stra Plif - [id number] Implanted:Qty: 1 on 09/19/2020 by Anna Hollins MD at [facility] Spine [employer]omet 12/29/2029 [id number]# / / [id number] Screw Vital Poly 6.5 X 45 Implanted:Qty: 4 on 09/19/2020 by Anna Hollins MD at [facility] Spine [id number] / / Description:SCREW VITAL POLY 6.5 X 45 Set Screw Lmbr 5.5-6mm Vitality Torque - [id number] Implanted:Qty: 4 on 09/19/2020 by Anna Hollins MD at [facility] Spine [employer] Spine [id number] 01# / / Dale Lmbr 45x5.5mm Vitality Cvd Titnm - [id number] Implanted:Qty: 2 on 09/19/2020 by Anna Hollins MD at [facility] Spine [employer] Spine [id number] 06# / / [id number] 1-4mm 30cc Medtronic Chips Canclls Freeze Dried Implanted:Qty: 1 on 09/19/2020 by Anna Hollins MD at [facility] Explanted:at [facility] (Quantity not on file) Spine Medtronic Spine/Ortho 03/07/2025 [id number]# / [id number] / Procedures Procedure Name Priority Date/Time Associated Diagnosis Comments MR HIP LEFT WO Routine 02/17/2024 3:33 PM CDT Chronic left hip pain Subchondral cyst COLONOSCOPY 07/02/2023 7:58 AM CDT XR MAMMO BILAT SCREENING Routine 2022 12:38 PM CRANKSHAFT BALANCER Visit for screening mammogram LIPID PANEL W REFLEX MEASURED LDL Routine 07/23/2022 2:52 PM CDT Screening cholesterol level from Last 3 Months or Most Recently Relevant to Health Maintenance Results * MR HIP LEFT WO (02/17/2024 3:33 PM CDT) Anatomical Region Laterality Modality HIPL Magnetic Resonan ce 02/18/2024 9:00 AM CDT Impressions 02/18/2024 9:00 AM CDT 1. Subchondral cystic change in the left acetabulum posterior and medially without adjacent high-grade chondromalacia. 2. Benign enchondroma in the left intertrochanteric region. 3. Stable right adnexal cyst. 4. Postoperative changes at the lumbosacral spine. Dictated by Claude Dennis MD @ 02/18/2024 9:00:02 AM (Electronically Signed) Narrative 02/18/2024 9:00 AM CDT For Patients: ??As a result of the Century Cures Act, medical imaging exams and procedure reports are released immediately into your electronic medical record. ??You may view this report before your referring provider. ??If you have questions, please contact your health care provider. EXAM: MRI OF THE LEFT HIP, WITHOUT CONTRAST CLINICAL INDICATION: Chronic left hip pain. COMPARISON PLAIN FILMS: None. COMPARISON CROSS-SECTIONAL IMAGING STUDIES: 10/28/2023 MR pelvis. TECHNICAL: Axial, sagittal and coronal PD FS small field of view images of the hip. Coronal T1, PD FS and axial T1 images of the pelvis. ?? FINDINGS: LEFT HIP: Labrum: No labral tear or paralabral cyst. Articular Cartilage: 1.9 cm focal area of subchondral cystic change in the posterior and medial acetabulum. Findings consistent with overlying chondromalacia which is not well visualized. No high-grade chondral defects. Joint Space: No effusion, synovitis or loose body. Proximal Femoral Morphology: No significant osseous bump. Femoral head-neck offset is within normal limits. Acetabular Morphology: No focal or global retroversion. No significant overcoverage. RIGHT HIP: No effusion or high-grade chondromalacia. No paralabral cyst. OSSEOUS STRUCTURES: Postoperative changes in the lumbosacral spine. No fracture. No evidence for avascular necrosis. Benign enchondroma in the left intertrochanteric region. MUSCULOTENDINOUS STRUCTURES AND BURSAE: Gluteus Minimus and Medius: No tendon tear or tendinopathy. No muscle atrophy or edema. Bursae: No trochanteric or iliopsoas bursitis. Common Hamstrings: No tendon tear or tendinopathy. Adductors and Flexors: Tendons and myotendinous junctions are intact. No muscle atrophy or edema. SOFT TISSUES: No subcutaneous edema, hematoma or fluid collection. OTHER JOINTS: Sacroiliac joints are maintained. Pubic symphysis is maintained. INTRAPELVIC CONTENTS: Right adnexal cyst remained stable. No inguinal hernia. ?? NEUROVASCULAR STRUCTURES: No abnormality involving the visualized proximal femoral or proximal sciatic nerves. ??No aneurysmal dilation of the visualized distal aorta or iliac arterial circulation. Procedure Note Claude Dennis MD - 02/18/2024 For Patients: As a result of the Century Cures Act, medical imagingexams and procedure reports are released immediately into your electronicmedical record. You may view this report before your referring provider.If you have questions, please contact your health care provider. EXAM: MRI OF THE LEFT HIP, WITHOUT CONTRAST CLINICAL INDICATION: Chronic left hip pain. COMPARISON PLAIN FILMS: None. COMPARISON CROSS-SECTIONAL IMAGING STUDIES: 10/28/2023 MR pelvis. TECHNICAL: Axial, sagittal and coronal PD FS small field of view images of the hip.Coronal T1, PD FS and axial T1 images of the pelvis. FINDINGS: LEFT HIP: Labrum: No labral tear or paralabral cyst. Articular Cartilage: 1.9 cm focal area of subchondral cystic change in theposterior and medial acetabulum. Findings consistent with overlyingchondromalacia which is not well visualized. No high-grade chondraldefects. Joint Space: No effusion, synovitis or loose body. Proximal Femoral Morphology: No significant osseous bump. Femoralhead-neck offset is within normal limits. Acetabular Morphology: No focal or global retroversion. No significantovercoverage. RIGHT HIP: No effusion or high-grade chondromalacia. No paralabral cyst. OSSEOUS STRUCTURES: Postoperative changes in the lumbosacral spine. No fracture. No evidencefor avascular necrosis. Benign enchondroma in the left intertrochantericregion. MUSCULOTENDINOUS STRUCTURES AND BURSAE: Gluteus Minimus and Medius: No tendon tear or tendinopathy. No muscleatrophy or edema. Bursae: No trochanteric or iliopsoas bursitis. Common Hamstrings: No tendon tear or tendinopathy. Adductors and Flexors: Tendons and myotendinous junctions are intact. Nomuscle atrophy or edema. SOFT TISSUES: No subcutaneous edema, hematoma or fluid collection. OTHER JOINTS: Sacroiliac joints are maintained. Pubic symphysis is maintained. INTRAPELVIC CONTENTS: Right adnexal cyst remained stable. No inguinal hernia. NEUROVASCULAR STRUCTURES: No abnormality involving the visualized proximal femoral or proximalsciatic nerves. No aneurysmal dilation of the visualized distal aorta oriliac arterial circulation. IMPRESSION: 1. Subchondral cystic change in the left acetabulum posterior and mediallywithout adjacent high-grade chondromalacia. 2. Benign enchondroma in the left intertrochanteric region. 3. Stable right adnexal cyst. 4. Postoperative changes at the lumbosacral spine. Dictated by Claude Dennis MD @ 02/18/2024 9:00:02 AM (Electronically Signed) Benedict Hartley MD MR * COLONOSCOPY (07/02/2023 7:58 AM CDT) 07/02/2023 7:58 AM CDT Narrative Transcriptions Cheko Ryder MD - 07/02/2023 8:48 AM CDT Patient Name: Ese Ramirez Procedure Date: 07/02/2023 Gender: Female Date of : 1965 Admit Type: Outpatient Procedure: Colonoscopy Proceduralist: Cheko Ryder MD , Rhonda Wells RN(Nurse), Patricia Ruffin (Nurse) Indications/Pre-Op Diagnosis: Screening for colorectal malignant neoplasm, Last colonoscopy: February 2018 Medications: Fentanyl 150 micrograms IV, Midazolam 4 mgIV Procedure Description: The patient had risks, benefits and alternatives explained to andgave informed consent. The patient had a stable cardiopulmonary status and judged an adequate candidate for conscious sedation. The endoscope [id number] was passed through the anus andadvanced to 4 cm into the ileum. The colonoscopy was performed without difficulty. The patient tolerated the procedure well. The quality ofthe bowel preparation was good. The ileocecal valve, appendiceal orifice, and rectum were photographed. Complications: No immediate complications. Estimated Blood Loss & Specimen: Estimated blood loss: none. Specimen collected - Yes and sent to Laboratory Findings: The perianal and digital rectal examinations were normal. The terminal ileum contained a few two mm ulcers. No bleeding was present. Biopsies were taken with a cold forceps for histology. A patchy area of mildly erythematous mucosa was found in the entire colon. Biopsies were taken with a cold forceps for histology. The exam was otherwise without abnormality. Impressions/Post-Op Diagnosis: - A few ulcers in the terminal ileum. Biopsied. - Erythematous mucosa in the entire examined colon. Biopsied. - The examination was otherwise normal. Recommendation: - Patient has a contact number available for emergencies. The signsand symptoms of potential delayed complications were discussed with the patient. Return to normal activities tomorrow. Written discharge instructions were provided to the patient. - Resume previous diet. - Continue present medications. - Await pathology results. - Repeat colonoscopy is recommended. The colonoscopy date will be determined after pathology results from today's exam become available for review. Moderate Sedation: Moderate (conscious) sedation was administered by the nurse and supervised by the endoscopist. The patient's oxygen saturation, heart rate, blood pressure and response to care were monitored. Total physician intraservice time was 31 minutes. Cheko Ryder MD 07/02/2023 8:48:48 AM This report has been signed electronically. Note Initiated On: 07/02/2023 7:58 AM Procedure Code(s): --- Professional --- 32698, Colonoscopy, flexible; with biopsy, single or multiple G0500, Moderate sedation services providedby the same physician or other qualified health client care representative performing agastrointestinal endoscopic service that sedation supports, requiring the presence of an independent trained observer to assist in the monitoringof the patient's level of consciousness and physiological status; initial 15 minutes of intra-service time; patient age 5 years or older (additional time may be reported with 32050, as appropriate) [address]1962, Moderate sedation; each additional 15 minutes intraservice time Diagnosis Code(s): --- Professional --- Z12.11, Encounter for screening formalignant neoplasm of colon K63.3, Ulcer of intestine K63.89, Other specified diseases ofintestine CPT copyright 2021 [employer]. All rights reserved. The codes documented in this report are preliminary and upon benefits specialist reviewmay be revised to meet current compliance requirements. Scope In: 8:05:53 AM Scope Withdrawal Time 0 hours 19 minutes 36 seconds Scope Out: 8:34:04 AM Cheko Ryder MD PROCEDURE ORD * XR MAMMO BILAT SCREENING (2022 12:38 PM [employer]SHAFT BALANCER) Anatomical Region Laterality Modality BREASTS, Breast Left, Breast Right Bilateral Mammography Impressions 2022 2:28 PM CRANKSHAFT BALANCER ??There is no radiographic evidence for malignancy. ??Recommend annual mammograms. MAMMOGRAM ASSESSMENT: ??ACR 1 Negative PATIENTS: You will also receive a letter with your examination results in an easy to read format. ??If you have questions about your results, please contact your referring provider. Narrative 2022 2:28 PM CRANKSHAFT BALANCER For Patients: As a result of the Century Cures Act, medical imaging exams and procedure reports are released immediately into your electronic medical record. You may view this report before your referring provider. If you have questions, please contact your health care provider. XR MAMMO BILAT SCREENING [[id number]] CLINICAL HISTORY: ??This is an asymptomatic 57 y.o. patient. INDICATION FOR EXAM: Mammogram Screening. TECHNIQUE: CC & MLO views were obtained. ??This study was evaluated with the assistance of Computer-Aided Detection. COMPARISON FILM: Yes 07/18/20 [facility]AVO 01/20/18 [facility] FINDINGS: ??The breasts have scattered areas of fibroglandular density. There are no dominant masses, suspicious micro calcifications or areas of architectural distortion. Rafia Hickman PA MAMMO * (ABNORMAL) LIPID PANEL W REFLEX MEASURED LDL (07/23/2022 2:52 PM CDT) CHOLESTEROL,TOTAL 182 100 - 199 mg/dL 07/24/2022 3:37 AM CDT [facility] [facility]AT[facility] TRIGLYCERIDES 222(H) <150 mg/dL 07/24/2022 3:37 AM CDT [facility] HDL CHOLESTEROL 55 >40 mg/dL 3:37 AM CDT [facility] NON-HDL CHOLESTEROL 127 <145 mg/dl 07/24/2022 3:37 AM T [facility] CHOL/HDL RATIO 3.31 <4.50 07/24/2022 3:37 AM CDT [facility] LDL CHOLESTEROL 83 <=130 mg/dL 07/24/2022 3:37 AM CDT [facility] VLDL CHOLESTEROL 44(H) <=30 mg/dL 07/24/2022 3:37 AM CDT [facility] PROVIDER ORDERED STATUS RANDOM 07/24/2022 3:37 AM T [facility] Blood BLOOD SPECIMEN / Unknown Venipuncture / Unknown 07/23/2022 2:52 PM CDT 07/23/2022 2:54 PM CDT Mario Napier MD CHEMISTRY [facility] [address] [place] [address], [place] from Last 3 Months or Most Recently Relevant to Health Maintenance Advance Directives * Full Code (Latest Code Status on File) Date Activated Date Inactivated Comments 09/19/2020 12:29 PM 09/21/2020 7:40 PM Question Answer Comments Code Status Discussion: Not Discussed * Full Code Date Activated Date Inactivated Comments 04/24/2009 4:56 PM 04/25/2009 4:46 PM * Full Code Date Activated Date Inactivated Comments 04/24/2009 10:05 AM 04/24/2009 4:56 PM * Full Code Date Activated Date Inactivated Comments 05/21/2007 7:18 PM 05/26/2007 4:14 PM * Full Code Date Activated Date Inactivated Comments 05/21/2007 9:41 AM 05/21/2007 7:18 PM Care Teams Economics Instructor Relationship Specialty Start Date End Date Raf[place] [address] PCP - General Family Practice 01/09/11
== END 2024-03-16 13:45 | disposition home or self-care (01) ==
PROVIDERS: Emergency Provider Emergency Medicine Emergency Medical Services; PCP Physician Assistant Medical
DX: M54.16 Radiculopathy, lumbar region (principal)
CPT/HCPCS: 96374; 99283; 99284; J2919

== ENCOUNTER 2024-05-06 07:59 | Outpatient (CLI) | payer BC, SELFPAY ==
--- OUTSIDE RECORDS SUMMARY | 2024-05-06 08:01 | XMS_ITS | Continuity of Care Document ---
Author Organization [facility] Address [address] [place] [address] Phone Care Team Providers Care Bread Room Hand Name Role Phone Gurvinder NEELY, Anna Unavailable [...] 2019 X-Ray Exam Of Lower Spine, Bending Oct- Postop Followup Visit Postop Followup Visit Lami/Discectomy, [...] Copied on Encounter [facility], [address], [place], [place], [id number], [place] tel:[phone] [facility] No Information 1 Gurvinder Pugh [facility], [address], [place], [place], [id number] , [place]. tel:[phone] [facility], [address], [place], [place], [id number], [place] tel:[phone] [facility] Other intervertebra l disc displacement, lumbar regionSpinal stenosis, lumbar region with neurogenic claudication Feb-0 1 Bruce Bowens. [address], [place], [place], [id number] , [place]. tel:[phone] Referring Provider: Anna Hollins [facility] [address], [place], [address]. tel:[phone] [facility], [address], [place], [place], [id number], [place] tel:[phone] [facility] Spinal stenosis, lumbar region with neurogenic claudicationO ther intervertebra l disc displacement, lumbar region 0 Mehbod [facility], [address], [place], [place], [id number] , [place]. [phone] Referring Provider: Anna Hollins [facility] [place] [address] [address], [place], [address]. tel:[phone] [facility], [address] [place] [address], [id number], [place] tel:[phone] [facility] No Information 0 Eckroth Kwan. [address], [place], [id number] , [place]. tel:[phone] Referring Provider: Anna Hollins [facility] [address], [place], [address]. tel:[phone] [facility], [address], [place], [place], [id number], [place] tel:[phone] [facility] No Information 0 Mehbod [facility] [place], [address], [place], [place], [id number] , [place]. [phone] Referring Provider: Anna Hollins [facility] [place] [address] [address], [place], [address]. tel:[phone] Office/Outpa tient Visit,Est, Mod [facility], [address], [place], [place], [id number], [place] tel:[phone] [facility] Spinal stenosis, lumbar region with neurogenic claudicationO ther intervertebra l disc displacement, lumbar region 2-202 0 Mehbod [facility], [address], [place], [place], [id number] , [place]. [phone] Referring Provider: Claude Elizalde, [address], [place], [address]. tel:[phone] [facility], [address], [place], [place], [id number], [place] tel:[phone] [facility] [place] Radiculopathy , lumbar region 0-202 0 Eckrtodd Bowens. [address] [place] [address], [id number] , [place]. tel:[phone] Referring Provider: Anna Hollins, [facility] [address] [address], [place], [address]. tel:[phone] [facility], [address] [place] [address], [id number], [place] tel:[phone] [facility] - [facility] Arthrodesis status 202 0 Mehbod [facility] [place], [address], [id number] , [place]. tel:[phone] Referring Provider: Ravi German, [facility] [address] [place], [address]. tel:[phone] [facility], [address] [place] [address], [id number], [place] [phone] [facility] No Information March-0 6-202 0 Ecelda Bowens. [address] [place] [address], [id number] , [place]. [phone] Referring Provider: Anna Hollins, [facility] [address] [address], [place], [address]. [phone] [facility], [address] [place] [address], [id number], [place] [phone] [facility] No Information March-0 4-202 0 Mehbod Amir. [facility], [address], [place], [place], [id number] , [place]. [phone] Referring Provider: Anna Hollins, [facility] [address], [place], [address]. tel:[phone] OFFICE/OUTPA TIENT VISIT NEW Phone [facility], [address], [place], [place], [id number], [place] tel:[phone] [facility] No Information Feb-2 9-202 0 Mehbod Amir. [facility], [address], [place], [place], [id number] , [place]. tel:[phone] Referring Provider: Anna Hollins, [facility] [address], [place], [address]. tel:[phone] Z [facility], [address], [place], [facility], [place] tel:[phone] [facility] No Information May-2 0-200 9 Mehbod Amir. [facility], [address], [place], [place], [id number] , [place]. tel: [phone] [facility], [address], [place], [facility], [place] tel:[phone] [facility] No Information Satish-0 9-200 9 Mehbod Amir. [facility], [address], [place], [place], [id number] , [place]. tel:[phone] Office/outpa tient visit,est, low Z [facility], [address], [place], [address], [place] tel:[phone] [facility] No Information Apr-3 0-200 9 Mehbod Amir. [facility] [place], [address], [place], [place], [id number] , [place]. tel:[phone] Office/outpa tient visit,est, mod Z [facility], [address], [place], [address], [place] tel:[phone] [facility] No Information Mar- 7-200 8 Mehbod Amir. [facility], [address], [place], [place], [id number] , [place]. tel: [phone] Z [facility], [address], [place], [address], [place] tel:[phone] [facility] No Information Oct-0 1-200 7 Mehbod Amir. [facility] [place], [address], [place], [place], [id number] , [place]. tel: [phone] Z [facility], [address], [place], [facility], [place] tel:[phone] [facility] No Information Jun-2 0-200 7 Mehbod Amir. [facility], [address], [place], [place], [address] , [place]. tel: [phone] Z [facility], [address], [place], [address], [place] tel:[phone] [facility] No Information 1-200 7 Mehbod Amir. [facility], [address] [place] [address] [address], [place], [place], [id number] , [place]. tel: [phone] Office consultation , moderate Z [facility], [address], [place], [address], [place] tel:[phone] [facility] No Information March- 1-200 7 Mehbod Amir. [facility], [address], [place], [place], [address] , [place]. tel: [phone] Family History Family Member Type Diagnosis Age At Onset No Information Payers Payer name Insurance type Covered republican ID Authoriza tion(s) No Information Social History [...]
--- OUTSIDE RECORDS SUMMARY | 2024-05-06 08:01 | XMS_ITS | Clinical Summary ---
Author Organization [facility] Address [place], [place] [address] Care Team Providers Care Winchman/Crane Operator Name Role Phone Rafia Hickman Primary Care [...] Active acetaminophen (TYLENOL EXTRA STRGTH) 500 mg tabletIndications: Acute post-operative pain Take 2 tablets by mouth every 6 hours. Max acetaminophen dose: 4000mg in 24 hrs. 30 tablet 0 Active balsalazide (COLAZAL) 750 mg capsuleIndications :Crohn's disease of small intestine without complication (HC),Generalized abdominal pain,Diarrhea, unspecified type Take 3 Capsules (2,250 mg) by mouth 3 times daily. 280 Capsule 11 2 Active Additional Information Patient taking differently:2,250 mg Oral TID,As needed, Reported on 04/01/2024 EPINEPHrine (EPIPEN) 0.3 mg/0.3 mL auto-injectorIndic ations:Bee sting allergy For bee sting. 2 Each 2 3 Active gabapentin (NEURONTIN) 600 mg tabletIndications: Displacement of lumbar intervertebral disc without myelopathy TAKE 1 TABLET(600 MG) BY MOUTH THREE TIMES DAILY 270 Tablet 4 Active pregabalin (LYRICA) 75 mg capsuleIndications :Lumbar radiculopathy Take 1 Capsule (75 mg) by mouth two times daily. 60 Capsule 2 4 Active traMADoL (ULTRAM) 50 mg tabletIndications: Lumbar radiculopathy Take 1 Tablet (50 mg) by mouth 3 times daily if needed for Pain. 36 Tablet 1 4 Active Additional Information Patient taking differently:50 mg Oral TID PRN, Pain,Has been taking it one time a day most days, Reported on 04/01/2024 Ventolin HFA 90 mcg/actuation inhalerIndications :Asthma, intermittent, uncomplicated INHALE 2 PUFFS BY MOUTH FOUR TIMES DAILY NEEDED FOR SHORTNESS OF BREATH 18 g 4 Active HYDROcodone-acetam inophen (5-325 mg/tablet)Indicati ons:Lumbar radiculopathy Take 1 Tablet by mouth 3 times daily if needed for Pain. Max acetaminophen dose: 4000 mg in 24 hrs. 24 Tablet 4 Active cyclobenzaprine (FLEXERIL) 10 mg tabletIndications: Displacement of lumbar intervertebral disc without myelopathy TAKE 1 TABLET(10 MG) BY MOUTH THREE TIMES DAILY NEEDED FOR MUSCLE SPASM 90 Tablet 1 4 Active cyclobenzaprine (FLEXERIL) 10 mg tabletIndications: Displacement of lumbar intervertebral disc without myelopathy Take 1 Tablet (10 mg) by mouth 3 times daily if needed for Muscle Spasm. 90 Tablet 1 4 024 Discontinued Active Problems Problem Noted Date Diagnosed Date [...] in my absence. Controlled substance agreement: 12/18/14 ELECTRIC BLASTING CAP ASSEMBLER query: 07/23/22 Last UDS: 12/14/20 Bilateral [facility] [...] Encounters Date Type Department Care Team Description 04/24/2024 Refill [facility] [address] [place] [address] Rafia Hickman PA Refill Request (Cyclobenzaprine) 04/18/2024 Telephone [facility] [address] [place] [address] Claude Martinez MD Results 04/13/2024 1:29 PM CDT - 04/13/2024 11:59 PM CDT Hospital Encounter [facility] [address] [place] [address] Claude Martinez MD Lumbar radiculopathy; Displacement of lumbar intervertebral disc without myelopathy; S/P lumbar fusion; Lumbar facet arthropathy 04/13/2024 Travel 04/01/2024 11:00 AM CDT Office Visit [facility] [address] [place] [address] Claude Martinez MD Musculoskeletal Problem (Follow up lower back pain ) 04/01/2024 Travel 03/23/2024 4:00 PM CDT Ancillary Procedure [facility] [address] [place] [address] 03/23/2024 Travel 03/17/2024 Refill [facility] [address] [place] [address] Rafia Hickman PA Refill Request (Ventolin Hfa) 03/16/2024 Nurse Triage [facility] [address] [place] [address] Rafia Hickman PA Back Pain/problem 03/07/2024 3:20 PM CDT Office Visit [facility] [address] [place] [address] Rafia Hickman PA Concerns (Ovarian cyst found on MRI - ) 03/07/2024 Travel 02/17/2024 3:04 PM CDT - 02/17/2024 11:59 PM CDT Hospital Encounter [address] [address] Benedict Hartley MD Chronic left hip pain; Subchondral cyst 02/17/2024 Travel from Last 3 Months Immunizations Name Administration Dates Next Due COVID-19 Vaccine Spikevax (M oderna 50mcg/0.5mL) 12YO+ [id number] Formula PF 09/25/2023 COVID-19 vaccine (Moderna 100mcg/0.5mL) PF, MDV 04/17/2021,02/13/2021 COVID-19 vaccine (Pfizer-Bio NTech 30mcg/0.3mL) PF, MDV 11/25/2021 Influenza, IIV3 (Age >=3 years) 09/01/2012,09/20,10/19/2007 [...] Given: Yes Alcohol Use Standard Drinks/Week Comments Not Currently 0 (1 standard drink = 0.6 oz [...] Outcome GA Total Labor Labor/2nd/3rd Weight Sex Type Anes PTL Bessie A1 A5 Name Clin SAB SAB SAB Comments early miscarriages. One chil d of SIDS Last Filed Vital Signs Vital Sign Reading Time Taken Comments Blood Pressure 101/69 04/01/2024 10:58 AM CDT Pulse 84 04/01/2024 10:58 AM CDT Temperature 36.5 ??C (97.7 ??F) 12/04/2023 11:[address] Respiratory Rate 14 07/02/2023 8:58 AM CDT Oxygen Saturation 95% 04/01/2024 10:58 AM CDT Inhaled Oxygen Concentration - - Weight 88 kg (193 lb 14.4 oz) 04/01/2024 10:58 A M CDT Height 166.4 cm (5' 5.5) 02/23/2023 11:12 AM CD T Body Mass Index 31.78 02/23/2023 11:12 AM CDT Plan of Treatment Upcoming Encounters Date Type Department Care Team (Late st Contact Info) Description 05/06/2024 8:40 AM CDT Office Visit [facility] [address] [place] [address] Claude Martinez MD [address] [place] [address] Arrived 06/23/2024 3:00 PM CDT Office Visit [facility] [address] [place] [address] Claude Martinez MD [address] [place] [address] Health Maintenance Due Date Last Done Comments [...] this topic Medical Devices Implanted Type Area Topper Press Operator Device Identifier Shelf Expiration Date Model / Serial / Lot [id number] ne Canclls Crushed 30cc [[id number]] Implanted:Qty: 1 on 05/21/2007 at [facility] Explanted:at [facility] (Quantity not on file) Spine Allosource 02/22/2012 [id number]# / [id number] / [id number] Precision 16x26 Fz [[id number]] Implanted:Qty: 1 on 05/21/2007 at [facility] Explanted:at [facility] (Quantity not on file) Spine [employer] 02/23/2012 [id number]# / [id number] / [id number] ne Canclls Crushed 30cc [[id number]] Implanted:Qty: 1 on 05/21/2007 at [facility] Explanted:at [facility] (Quantity not on file) Spine Allosource 02/25/2012 [id number]# / [id number] / Dale Bridgette Rad 40mm 108mm Radius - [id number] Implanted:Qty: 2 on 05/21/2007 at [facility] Spine [employer]ICA [id number] / / Venu Bridgette [id number] - [id number] Implanted:Qty: 4 on 05/21/2007 at [facility] Spine [employer]MEDICA [id number]# / / Kit Infuse Sm - [id number] Implanted:Qty: 1 on 05/21/2007 at [facility] Spine SOFAMOR DANEK [id number]# / / [id number] Screw Polyaxial 6.5x35mm - [id number] Implanted:Qty: 2 on 05/21/2007 at [facility] Spine [employer] [id number]# / / Screw Polyaxial 6.5x45mm - [id number] Implanted:Qty: 2 on 05/21/2007 at [facility] Spine [employer] [id number]# / / [id number] ne Matrix 3cc Milbank Dbf Putty Dbm Implanted:Qty: 1 on 09/19/2020 by Anna Hollins MD at [facility] Explanted:at [facility] (Quantity not on file) Spine Medtronic Spine/Ortho 06/27/2022 [id number] / [id number] / Spacer Lmbr [id number] [place] Convex Stra Plif - [id number] Implanted:Qty: 1 on 09/19/2020 by Anna Hollins MD at [facility] Spine [employer] 12/29/2029 [id number] / / [id number] Screw Vital Poly 6.5 X 45 Implanted:Qty: 4 on 09/19/2020 by Anna Hollins MD at [facility] Spine [id number] / / Description:SCREW VITAL POLY 6.5 X 45 Set Screw Lmbr 5.5-6mm Vitality Torque - [id number] Implanted:Qty: 4 on 09/19/2020 by Anna Hollins MD at [facility] Spine [employer] Spine [id number] 01# / / Dale Lmbr 45x5.5mm Vitality Cvd Titnm - [id number] Implanted:Qty: 2 on 09/19/2020 by Anna Hollins MD at [facility] Spine [employer] Spine [id number] 06# / / [id number] 1-4mm 30cc Medtronic Chips Canclls Freeze Dried Implanted:Qty: 1 on 09/19/2020 by Anna Hollins MD at [facility] Explanted:at [facility] (Quantity not on file) Spine Medtronic Spine/Ortho 03/07/2025 [id number]# / [id number] / Procedures Procedure Name Priority Date/Time Associated Diagnosis Comments AMB EPIDURAL STEROID INJECTION Routine 05/06/2024 8:00 AM CDT Lumbar radiculopathy Lumbar facet arthropathy S/P lumbar fusion MR SPINE LUMBAR WWO Routine 04/13/2024 2 :04 PM CDT Lumbar radiculopathy Displacement of lumbar intervertebral disc without myelopathy S/P lumbar fusion Lumbar facet arthropathy US PELVIS COMPLETE TA AND TV Routine 03/23/2024 4:09 PM CDT Right ovarian cyst MR HIP LEFT WO Routine 02/17/2024 3:33 PM CDT Chronic left hip pain Subchondral cyst COLONOSCOPY 07/02/2023 7:58 AM CDT XR MAMMO BILAT SCREENING Routine 2022 12:38 PM MILITARY PROFESSIONAL Visit for screening mammogram LIPID PANEL W REFLEX MEASURED LDL Routine 07/23/2022 2:52 PM CDT Screening cholesterol level from Last 3 Months or Most Recently Relevant to Health Maintenance Results * MR SPINE LUMBAR WWO (04/13/2024 2:04 PM CDT) Anatomical Region Laterality Modality Spine, LUMBAR SPINE Magnetic Res onance 04/13/2024 4:17 PM CDT Impressions 04/13/2024 4:17 PM CDT 1. Yamile degenerative retrolisthesis of L2 on L3. Otherwise, normal alignment. No fractures 2. Stable postoperative changes L3-4 with posterior fusion hardware. Stable mature postop changes at L5-S1. 3. No abnormal enhancement 4. At L4-5, diffuse disc bulge. Mild narrowing of the spinal canal and left neural foramen. 5. No spinal canal or neural foraminal narrowing at the remaining levels Dictated by Antonio Peralta MD @ 04/13/2024 4:17:57 PM (Electronically Signed) Narrative 04/13/2024 4:17 PM CDT For Patients: ??As a result of the Cures Act, medical imaging exams and procedure reports are released immediately into your electronic medical record. ??You may view this report before your referring provider. ??If you have questions, please contact your health care provider. INDICATION: Lumbar radiculopathy. COMPARISON: 09/08/2023. Technique Sagittal T1, T2, and STIR sequences. Axial T1 and T2 weighted sequences. FINDINGS: Trace degenerative retrolisthesis of L2 on L3 measures approximate 4 mm. Otherwise, normal alignment. No fractures. No vertebral body loss of height. Stable postoperative changes diskectomy interbody fusion L3-4 with posterior fusion hardware. Stable mature postop changes of diskectomy interbody fusion at L5-S1 with laminectomy. No significant edema or enhancing relation tissue within the posterior soft tissues of the operative bed. No abnormal enhancement elsewhere. No suspicious osseous lesions. Normal conus terminates at L2. T12-L1 L1-2: No spinal canal neural foraminal narrowing. L2-3: Grade 1 retrolisthesis. Disc degeneration and posterior disc bulge. Flattening of ventral thecal sac. No narrowing of the spinal canal. No neural foraminal narrowing. L3-4: Postoperative changes. No spinal canal neural foraminal narrowing. L4-5: Diffuse disc bulge. Flattening of ventral thecal sac. Combined with ligament flavum facet hypertrophy, there is mild narrowing of spinal canal. Facet arthropathy results in mild narrowing of the left neural foramen. No narrowing of the right neural foramen. L5-S1: No narrowing of the spinal canal. No impingement of the traversing S1 nerve roots. No neural foraminal narrowing. Degenerative changes of visualized SI joints. Normal paraspinal soft tissues. Procedure Note Antonio Peralta MD, PhD - 04/13/2024 For Patients: As a result of the Century Cures Act, medical imagingexams and procedure reports are released immediately into your electronicmedical record. You may view this report before your referring provider.If you have questions, please contact your health care provider. INDICATION: Lumbar radiculopathy. COMPARISON: 09/08/2023. Technique Sagittal T1, T2, and STIR sequences. Axial T1 and T2 weightedsequences. FINDINGS: Trace degenerative retrolisthesis of L2 on L3 measures approximate 4 mm.Otherwise, normal alignment. No fractures. No vertebral body loss ofheight. Stable postoperative changes diskectomy interbody fusion L3-4 withposterior fusion hardware. Stable mature postop changes of diskectomy interbody fusion at L5-S1 withlaminectomy. No significant edema or enhancing relation tissue within the posteriorsoft tissues of the operative bed. No abnormal enhancement elsewhere. No suspicious osseous lesions. Normal conus terminates at L2. T12-L1 L1-2: No spinal canal neural foraminal narrowing. L2-3: Grade 1 retrolisthesis. Disc degeneration and posterior disc bulge.Flattening of ventral thecal sac. No narrowing of the spinal canal. Noneural foraminal narrowing. L3-4: Postoperative changes. No spinal canal neural foraminal narrowing. L4-5: Diffuse disc bulge. Flattening of ventral thecal sac. Combined withligament flavum facet hypertrophy, there is mild narrowing of spinalcanal. Facet arthropathy results in mild narrowing of the left neuralforamen. No narrowing of the right neural foramen. L5-S1: No narrowing of the spinal canal. No impingement of the traversingS1 nerve roots. No neural foraminal narrowing. Degenerative changes of visualized SI joints. Normal paraspinal soft tissues. IMPRESSION: 1. Yamile degenerative retrolisthesis of L2 on L3. Otherwise, normalalignment. No fractures 2. Stable postoperative changes L3-4 with posterior fusion hardware.Stable mature postop changes at L5-S1. 3. No abnormal enhancement 4. At L4-5, diffuse disc bulge. Mild narrowing of the spinal canal andleft neural foramen. 5. No spinal canal or neural foraminal narrowing at the remaining levels Dictated by Antonio Peralta MD @ 04/13/2024 4:17:57 PM (Electronically Signed) Claude Martinez MD MR * US PELVIS COMPLETE TA AND TV (03/23/2024 4:09 PM CDT) Anatomical Region Laterality Modality Pelvis Ultrasound 03/25/2024 6:27 AM CDT Impressions 03/25/2024 6:27 AM CDT Simple right ovarian cyst is unchanged measuring 4.1 cm. No torsion. Dictated by José Antonio Palomo MD @ 03/25/2024 6:27:23 AM (Electronically Signed) Narrative 03/25/2024 6:27 AM CDT For Patients: ??As a result of the Cures Act, medical imaging exams and procedure reports are released immediately into your electronic medical record. ??You may view this report before your referring provider. ??If you have questions, please contact your health care provider. INDICATION: Right ovarian cyst COMPARISON: MRI 10/28/2023 TECHNIQUE: 2D garcia scale and color Doppler images were acquired of the pelvis using a transabdominal and transvaginal approach. FINDINGS: The uterus is absent. The right ovary measures 4.5 x 4.0 x 3.8 cm in size and the left ovary is not visualized. The right ovary demonstrates normal arterial and venous blood flow on color Doppler analysis. There are no suspicious fluid collections within the cul-de-sac. Simple circumscribed right ovarian cyst is present measuring 4.1 x 3.7 x 3.4 cm, previously measuring 3.9 cm. Procedure Note José Antonio Palomo MD - 03/25/2024 For Patients: As a result of the Cures Act, medical imagingexams and procedure reports are released immediately into your electronicmedical record. You may view this report before your referring provider.If you have questions, please contact your health care provider. INDICATION: Right ovarian cyst COMPARISON: MRI 10/28/2023 TECHNIQUE: 2D garcia scale and color Doppler images were acquired of the pelvis using atransabdominal and transvaginal approach. FINDINGS: The uterus is absent. The right ovary measures 4.5 x 4.0 x 3.8 cm in size and the left ovary isnot visualized. The right ovary demonstrates normal arterial and venousblood flow on color Doppler analysis. There are no suspicious fluidcollections within the cul-de-sac. Simple circumscribed right ovarian cystis present measuring 4.1 x 3.7 x 3.4 cm, previously measuring 3.9 cm. IMPRESSION: Simple right ovarian cyst is unchanged measuring 4.1 cm. No torsion. Dictated by José Antonio Palomo MD @ 03/25/2024 6:27:23 AM (Electronically Signed) Rafia ROBERTSON US * MR HIP LEFT WO (02/17/2024 3:33 [...] For Patients: ??As a result of the Cures Act, medical imaging exams and procedure [...] adequate candidate for conscious sedation. The endoscope [id number] was passed through the anus andadvanced to [...] 7:58 AM Procedure Code(s): --- Professional --- 38549, Colonoscopy, flexible; with biopsy, single or multiple G0500, Moderate sedation services providedby the same physician or other qualified health career technology teacher performing agastrointestinal endoscopic service that sedation supports, requiring the presence of an independent trained observer to assist in the monitoringof the patient's level of consciousness and physiological status; initial 15 minutes of intra-service time; patient age 5 years or older (additional time may be reported with [address], as appropriate) [address]11, Moderate sedation; each additional 15 minutes intraservice time Diagnosis Code(s): --- Professional --- Z12.11, Encounter for screening formalignant neoplasm of colon K63.3, Ulcer of intestine K63.89, Other specified diseases ofintestine CPT copyright 2021 [employer]. All rights reserved. The codes documented in this report are preliminary and upon special education science teacher reviewmay be revised to meet current compliance requirements. Scope In: 8:05:53 AM Scope Withdrawal Time 0 hours 19 minutes 36 seconds Scope Out: 8:34:04 AM Cheko Ryder MD PROCEDURE ORD * XR MAMMO BILAT SCREENING (2022 12:38 PM MILITARY PROFESSIONAL) Anatomical Region Laterality Modality BREASTS, Breast Left, Breast Right Bilateral Mammography Impressions 2022 2:28 PM MILITARY PROFESSIONAL ??There is no radiographic evidence for malignancy. ??Recommend annual mammograms. MAMMOGRAM ASSESSMENT: ??ACR 1 Negative PATIENTS: You will also receive a letter with your examination results in an easy to read format. ??If you have questions about your results, please contact your referring provider. Narrative 2022 2:28 PM MILITARY PROFESSIONAL For Patients: As a result of the 21st Century Cures Act, medical imaging exams and procedure reports are released immediately into your electronic medical record. You may view this report before your referring provider. If you have questions, please contact your health care provider. XR MAMMO BILAT SCREENING [[id number]] CLINICAL HISTORY: ??This is an asymptomatic 57 y.o. patient. INDICATION FOR EXAM: Mammogram Screening. TECHNIQUE: CC & MLO views were obtained. ??This study was evaluated with the assistance of Computer-Aided Detection. COMPARISON FILM: Yes 07/18/20 [employer] 01/20/18 [employer] FINDINGS: ??The breasts have scattered areas of fibroglandular density. There are no dominant masses, suspicious micro calcifications or areas of architectural distortion. Rafia Hickman PA MAMMO * (ABNORMAL) LIPID PANEL W REFLEX MEASURED LDL (07/23/2022 2:52 PM CDT) CHOLESTEROL,TOTAL 182 100 - 199 mg/dL 07/24/2022 3:37 AM CDT [facility] TRIGLYCERIDES 222(H) <150 mg/dL 07/24/2022 3:37 AM CDT [facility] HDL CHOLESTEROL 55 >40 mg/dL 3:37 AM CDT [facility] NON-HDL CHOLESTEROL 127 <145 mg/dl 07/24/2022 3:37 AM CDT [facility] CHOL/HDL RATIO 3.31 <4.50 07/24/2022 3:37 AM CDT [facility] LDL CHOLESTEROL 83 <=130 mg/dL 07/24/2022 3:37 AM CDT [facility] VLDL CHOLESTEROL 44(H) <=30 mg/dL 07/24/2022 3:37 AM CDT [facility] PROVIDER ORDERED STATUS RANDOM 07/24/2022 3:37 AM CDT [facility] Blood BLOOD SPECIMEN / Unknown Venipuncture / Unknown 07/23/2022 2:52 PM CDT 07/23/2022 2:54 PM CDT Mario Napier MD CHEMI[facility] [address] [place] [address], [place] from Last 3 Months or Most [...] 9:41 AM 05/21/2007 7:18 PM Care Teams Winchman/Crane Operator Relationship Specialty Start Date End Date Rafia Hickman PA Zackary CAUSE[facility]FORMERLY [facility], [place] [address] PCP - General Family Practice 01/09/11
== END 2024-05-06 08:00 | disposition home or self-care (01) ==
LOC: INJ CL 07:59
PROVIDERS: PCP Physician Assistant Medical; Visit Provider Family Medicine
DX: M54.16 Radiculopathy, lumbar region (principal); M51.36 Other intervertebral disc degeneration, lumbar region
CPT/HCPCS: 64483; J1100; Q9966

== ENCOUNTER 2024-11-13 14:11 | Emergency (ER) | payer BC, SELFPAY ==
[2024-11-13 14:20] VITALS: BP 135/118; PULSE 91; RESP 18; TEMP 36.9; O2SAT 92; BMI 32.9
--- NOTE | 2024-11-13 14:37 | ED.BACK ---
HPI - Back Pain/Injury General Time Seen by Provider: 14:37 Date Seen: 11/13/24 Chief Complaint: Back Injury/Pain Stated Complaint: Back pain Time Seen by Provider: 11/13/24 14:36 Source: patient and RN notes reviewed Mode of arrival: ambulatory Limitations: no limitations History of Present Illness HPI Narrative: This 58 year female is coming in by ambulance from home with increased back pain. She has acute on chronic back pain. 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 She states when she 1st ruptured a disc she was folding clothes. She has had surgical correction of her back, follows with Dr. Martinez. She does use flex own tramadol for her symptoms. She last use oral steroids from when she was in the ER from us, this was in March. She has a chronic left lumbar radiculopathy, seems a bit worse. She has been a bit constipated late but denies any bowel or bladder dysfunction. 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 She has had no fevers or chills, no new trauma, no history of cancer, is a nonsmoker. She really just did not know what to do, really could not get up on her own and was just laying in her house. MD elicited complaint: back pain Related Data Home Medications ?Medication ?Instructions ?Recorded ?Confirmed albuterol sulfate 90 mcg/actuation 2 inh inhalation PRN 06/26/22 12/29/22 aerosol inhaler (ProAir HFA) cyclobenzaprine 10 mg tablet mg 06/26/22 07/16/22 balsalazide 750 mg capsule 750 mg PO TID 07/28/22 12/29/22 gabapentin 600 mg tablet 600 mg PO QHS 07/28/22 12/29/22 epinephrine 0.3 mg/0.3 mL 12/29/22 injection, auto-injector tramadol 50 mg tablet 50 mg PO 3XD PRN pain 11/13/24 11/13/24 Previous Rx's ?Medication ?Instructions ?Recorded hydrocodone 5 mg-acetaminophen 325 1 tab PO Q4-6H PRN pain #15 tabs 03/16/24 mg tablet methylprednisolone 4 mg tablets in See Rx Instructions PO .COMPLEX 03/16/24 a dose pack (Medrol (Percy)) #21 ea Allergies Allergy/AdvReac Type Severity Reaction Status Date / Time bee venom protein (honey bee) Allergy Unknown Verified 05/06/24 09:03 cephalexin Allergy Hives Verified 05/06/24 09:03 latex Allergy Rash Verified 05/06/24 09:03 cefzil Allergy Mild unknown Uncoded 05/06/24 09:03 Shellfish Allergy Nausea Uncoded 05/06/24 09:03 Review of Systems Narrative: As per HPI. PFS PFS Medical History Chronic pain syndrome ?G89.4 - Chronic pain syndrome (ICD-10) Anxiety ?F41.9 - Anxiety disorder, unspecified (ICD-10) Crohn's disease ?K50.90 - Crohn's disease, unspecified, without complications (ICD-10) Plantar fascia rupture ?S93.699A - Other sprain of unspecified foot, initial encounter (ICD-10) Surgical History S/P arthroscopic partial medial meniscectomy ?Z98.890 - Other specified postprocedural states (ICD-10) S/P foot surgery, left ?Z98.890 - Other specified postprocedural states (ICD-10) H/O: hysterectomy ?Z90.710 - Acquired absence of both cervix and uterus (ICD-10) Previous back surgery ?Z98.890 - Other specified postprocedural states (ICD-10) Social History Smoking Status: Never smoker Do you use any of these nicotine containing products: None How often do you have a drink containing alcohol: monthly or less How many standard drinks containing alcohol do you have on a typical day: 1 or 2 How often do you have six or more drinks on one occasion: Never AUDIT-C Alcohol total score: 1 Non-prescribed substance use: denies use Caffeine: Yes (2 cups coffee in am) Are you using contraception or practicing any form of control: No service: No Exam Const: Vital Signs, click to edit/add: Vital Signs - 24 hr 11/13/24 14:20 Temperature 98.4 F Pulse Rate [Right Pulse Oximeter] 91 Respiratory Rate 18 Blood Pressure [Le ft Upper Arm] 135/118 H Pulse Oximetry 92 Oxygen Delivery Me thod Room Air Patient is lying on the ER gurney in the hallway, we have no available beds in rooms at this time. She is alert, interactive, no apparent distress. With assistance she can hold her leg up on both sides. I have to lift the leg up for her and then she can not hold it. Attempting to lift either leg off the bed causes her significant pain in her low back. She has light touch sensation that is normal in her right lower extremity. Some diminished are left but she states it is baseline. There is no edema. Strength about her ankles with dorsiflexion and plantar flexion is 5/5 and symmetric bilaterally. She complains of left sciatic notch tenderness on palpation her left buttock. There is some paraspinous tenderness when I palpate along the left lower spine. Documenting provider has reviewed patient's vital signs: yes Course Course ED Course: I do not feel that new imaging is indicated for this patient. She can follow up outpatient with 1 of her providers and have this done if needed. We do not have availability of MRI at this time. With no trauma or concern for infection, no bowel or bladder changes, no significant change in musculoskeletal status as far strength, do not feel any emergent imaging is needed. She is requesting something for pain and also requesting a refill of her Flexeril. I will give her 30 mg IV Toradol, she did get fentanyl from EMS. Will give her prednisone 20 mg and refill of Flexeril, 4 tablets of 5 mg oxycodone from [facility]. Vital Signs Vital signs: Initial Vital Signs Temperature 98.4 F 11/13/24 14:20 Temperature Source Temporal Artery Scan 11/13/24 14:20 Pulse Rate 91 11/13/24 14:20 Pulse Rhythm Regular 11/13/24 14:20 Respiratory Rate 18 11/13/24 14:20 Blood Pressure 135/118 H 11/13/24 14:20 Blood Pressure Mean 123 H 11/13/24 14:20 Blood Pressure Position Supine 11/13/24 14:20 Pulse Oximetry 92 11/13/24 14:20 Oxygen Delivery Method Room Air 11/13/24 14:20 Vital Signs Temperature 98.4 F 11/13/24 14:20 Pulse Rate 91 11/13/24 14:20 Respiratory Rate 18 11/13/24 14:20 Blood Pressure 135/118 H 11/13/24 14:20 Pulse Oximetry 92 11/13/24 14:20 Oxygen Delivery Method Room Air 11/13/24 14:20 Temperature 98.4 F 11/13/24 14:20 Pulse Rate 91 11/13/24 14:20 Respiratory Rate 18 11/13/24 14:20 Blood Pressure 135/118 H 11/13/24 14:20 Pulse Oximetry 92 11/13/24 14:20 Oxygen Delivery Method Room Air 11/13/24 14:20 Medications Administered Medications: Discontinued Medications Generic Name Dose Route Start Last Admin Trade Name Freq PRN Reason Stop Dose Admin Ketorolac Tromethamine 30 mg 11/13/24 15:02 11/13/24 15:08 Ketorolac 30 Mg/Ml Inj IVP 11/13/24 15:03 30 mg ONCE ONE Administration Discharge Plan Discharge Clinical Impression: Lumbar radiculopathy Patient Disposition: Home, Self-Care Condition: Stable Instructions: Acute Low Back Pain (ED), Lumbar Radiculopathy (ED) Additional Instructions: Have refilled Flexeril from [facility], 15 pills. Take prednisone 20 mg twice a day for 5 days. Have given you a few tablets of oxycodone, this is all that we can provide through the ER. Can take 1 5 mg tablet up to every 6 hours as needed. Need to contact her clinic tomorrow to make further follow-up arrangements, do recommend reaching out to Dr. Martinez. The oxycodone can be constipating, may need to use MiraLax 17 g daily, add in senna 1-2 tablets up to twice a day as needed for soft formed bowel movement. Activity Level: Activity as Tolerated Prescriptions: No Action cyclobenzaprine 10 mg tablet Patient Comments: TAKE 1 TABLET BY MOUTH THREE TIMES DAILY NEEDED FOR MUSCLE SPASM albuterol sulfate [ProAir HFA] 90 mcg/actuation HFA aerosol inhaler 2 inh INHALATION PRN Patient Comments: INHALE 2 PUFFS BY MOUTH FOUR TIMES DAILY NEEDED tramadol 50 mg tablet 50 mg PO 3XD PRN (Reason: pain) balsalazide 750 mg capsule 750 mg PO TID gabapentin 600 mg tablet 600 mg PO QHS epinephrine 0.3 mg/0.3 mL auto-injector Patient Comments: USE DIRECTED FOR BEE STING hydrocodone-acetaminophen 5-325 mg tablet 1 tab PO Q4-6H PRN (Reason: pain) Qty: 15 0RF methylprednisolone [Medrol (Percy)] 4 mg tablets,dose pack See Rx Instructions .ROUTE .COMPLEX Qty: 21 0RF Rx Instructions: orally per package directions Follow Up/Referrals: Rafia Hickman PA-C [Primary Care Provider] - Stand Alone Forms: MyHealth Info Instructions
[2024-11-13] MEDS: KETOROLAC 30 MG/ML inj IVP (15:08)
[2024-11-13 15:38] VITALS: BP 108/80
== END 2024-11-13 15:39 | disposition home or self-care (01) ==
PROVIDERS: Emergency Provider Family Medicine; PCP Physician Assistant Medical
DX: M54.16 Radiculopathy, lumbar region (principal)
CPT/HCPCS: 96372; 99283; J1885

== ENCOUNTER 2024-12-06 06:49 | Outpatient (CLI) | payer BC, SELFPAY | END 2024-12-06 06:50 | disposition home or self-care (01) | LOC: INJ CL 06:51 | PROVIDERS: PCP Physician Assistant Medical; Visit Provider Family Medicine | DX: M54.16 Radiculopathy, lumbar region (principal); M51.369 Other intervertebral disc degeneration, lumbar region without mention of lumbar back pain or lower extremity pain | CPT/HCPCS: 64483; J1100; Q9966 ==

== ENCOUNTER 2025-01-27 08:02 | Outpatient (CLI) | payer BC, SELFPAY | END 2025-01-27 08:03 | disposition home or self-care (01) | LOC: INJ CL 08:02 | PROVIDERS: PCP Physician Assistant Medical; Visit Provider Family Medicine | DX: M54.16 Radiculopathy, lumbar region (principal); M51.26 Other intervertebral disc displacement, lumbar region | CPT/HCPCS: 64483; J1100; Q9966 ==

== ENCOUNTER 2025-02-23 10:23 | Outpatient (CLI) | payer BC, SELFPAY | END 2025-02-23 10:24 | disposition home or self-care (01) | LOC: NFLDREF 02-27 20:01 | PROVIDERS: PCP Physician Assistant Medical; Referring Provider Physician Assistant Medical; Visit Provider Physician Assistant | DX: N39.0 Urinary tract infection, site not specified (principal); B96.20 Unspecified Escherichia coli [E. coli] as the cause of diseases classified elsewhere | CPT/HCPCS: 87086 ==

== ENCOUNTER 2025-10-24 08:58 | Outpatient (CLI) | payer BC, SELFPAY | END 2025-10-24 08:59 | disposition home or self-care (01) | LOC: INJ CL 08:58 | PROVIDERS: PCP Physician Assistant Medical; Visit Provider Family Medicine | DX: M53.3 Sacrococcygeal disorders, not elsewhere classified (principal) | CPT/HCPCS: 27096; J0702; Q9966 ==